=== PATIENT | female | born 2000 | race African-American/Black ===

== ENCOUNTER 2025-01-14 00:12 | Emergency (ER) | payer OTHER, SELFPAY ==
[2025-01-14] VITALS (7 sets, daily range): BP systolic 122–139; BP diastolic 76–93; PULSE 72–97; RESP 18–34; TEMP 36.7; O2SAT 99–100
--- NOTE | ~2025-01-14 | XR_ITS ---
Clinical Indication: Shortness of breath PA and lateral views of the chest: Comparison: None Findings: The lungs are clear, without evidence of focal consolidation or pleural effusion. Cardiome diastinal silhouette is within normal limits. Bones and soft tissues are unremarkable. Impression: Normal chest. Reviewed, dictated and finalized at [facility]. Impression: Normal chest.
--- NOTE | 2025-01-14 00:23 | ECG_ITS ---
Test Date: 2025-01-14 00:12:25 Measurements Intervals [place] Rate: 90 P: 79 HI: 151 QRS: 57 QRSD: 83 T: -3 QT: 380 QTc: 466 Interpretive Statements SINUS RHYTHM NONSPECIFIC T-WAVE ABNORMALITY INTERPRETATION BASED ON A DEFAULT AGE OF 40 YEARS No previous ECG available for comparison Electronically Signed On 01-14-2025 15:58:18 CDT by Berto Del Valle M.D.
[2025-01-14 00:29] LABS: BEDSIDEPREGUCG Negative (Negative)
[2025-01-14 00:40] LABS: Basophils Percent Auto 0.4 % (0.2-1.2); Eosinophils Percent Auto 0.1 % (0-4.4); Hematocrit 33.7 % (37.0-47.0); Hemoglobin 11.4 g/dL (12.0-15.0); Immature Granulocyte Absolute 0.01 K/mm3 (0.00-0.031); Immature Granulocyte Percent A 0.1 % (0-0.5); Lymphocytes Absolute Auto 3.25 K/mm3 (0.9-3.2); Lymphocytes Percent Auto 45.1 % (18.3-44.2); Mean Corpuscular HGB Conc 33.8 g/dl (32-36); Mean Corpuscular Hemoglobin 28.4 pg (26-34); Mean Corpuscular Volume 83.8 fl (80-100); Mean Platelet Volume 10.5 fl (7.4-10.4); Monocytes Absolute Auto 0.9 K/mm3 (0.1-0.6); Monocytes Percent Auto 11.9 % (2.6-8.5); Neutrophils Percent Auto 42.4 % (45.5-73.1); Platelet Count Result 241 k/mm3 (150-375); Red Blood Count 4.02 M/mm3 (4.2-5.4); Red Cell Distribution Width 15.8 % (11.5-14.5); White Blood Count 7.2 K/mm3 (4.5-10.0)
[2025-01-14 00:48] LABS: Alanine Aminotransferase 33 U/L (6-35); Albumin Level 4.9 g/dL (3.5-5.1); Alkaline Phosphatase 79 U/L (38-126); Anion Gap 14 mmol/L (4-12); Aspartate Amino Transferase 47 U/L (14-36); Bilirubin,Total 0.2 mg/dL (0.2-1.3); Blood Urea Nitrogen 8 mg/dL (7-17); Calcium 9.9 mg/dL (8.4-10.2); Carbon Dioxide 19 mmol/L (22-30); Chloride 105 mmol/L (98-107); Estimated CRCL calculation 85 ml/min; Estimated Glomerular Filt Rate > 60; Glucose 107 mg/dL (65-110); Potassium 3.1 mmol/L (3.4-5.0); Sodium 138 mmol/L (137-145)
--- OUTSIDE RECORDS SUMMARY | 2025-01-14 01:25 | XMS_ITS | Referral Summary ---
Author Organization [facility] Address [address] [place] [address] Care Team Providers Care Belt And Link Assembly Supervisor Name Role Phone Unknown, Notinfile Primary Care Provider Unavail able Encounters Date Type Department Care Team Description 12/04/2024 4:18 AM CDT - 12/04/2024 7:16 AM CDT Emergency [address] [address] Nasim Payan MD Chest pain, unspecified type (Primary Dx); Anemia, unspecified type Discharge Disposition: Discharge to home or self care 11/19/2024 SHOP/CHAP Initial Outreach [facility] OP CASE MANAGEMENT [address] [place] [address] Norma Cardona, SCHOOL CLERK 11/18/2024 SHOP/CHAP Initial Outreach [facility] OP CASE MANAGEMENT [address] [place] [address] Norma Cardona LCSW 11/17/2024 SHOP/CHAP Initial Outreach [facility] OP CASE MANAGEMENT [address] [place] [address] Norma Cardona LCSW 11/17/2024 SHOP/CHAP Initial Eligibility Review [facility] OP CASE MANAGEMENT [address] [place] [address] Norma Cardona LCSW 11/11/2024 10:01 PM CDT - 11/16/2024 5:30 PM CDT Hospital Encounter [facility] [place] [address] Ellie Chung MD Renz, MD Dmitry Gomez, MD Sheridan Valentin, MD Maria D Vu Mirjana, MD Acute encephalopathy (Primary Dx); Dental abscess; Alcohol withdrawal syndrome with complication (HCC); Syncope, unspecified syncope type Discharge Disposition: Discharge to home or self care from Last 3 Months Allergies No known active allergies Medications albuterol HFA (PROVENTIL HFA,VENTOLIN HFA,PROAIR HFA) 90 mcg/actuation inhaler Inhale 2 puffs every 4 (four) hours as needed for wheezing 1 each 11/28/2022 Active multivitamin with folic acid 400 mcg tablet Take 1 tablet by mouth daily 30 tablet 11/17/2024 11/18/19 26 Active Active Problems Problem Noted Date Diagnosed Date Screening examination for STI 11/14/2024 Assessment & Plan (11/15/2024 1:07 PM CDT): Patient reported ongoing dysuria in spite on negative urine cx and now endorses recent sexual encounter and yellow and green vaginal drainage. - HIV, RPR non-reactive, urine G/C, trich negative - vaginal swab with altered rainer, vaginal yeast - s/p fluconazole 150mg x1. - dysuria improving Pain due to dental caries 11/13/2024 Assessment & Plan (11/14/2024 3:22 PM CDT): Panorex obtained with multiple caries of maxillary and mandibular molars, no periapical lucencies. Discussed with patient and she is interested in extractions - OMFS c/s called, evaluated after patient had already eaten, so extraction deferred until next week - patient with difficulty obtaining dental care outpatient. Due to caries and dental pain, OMFS agreeable to perform extractions inpatient Acute encephalopathy 11/12/2024 Assessment & Plan (11/15/2024 7:47 AM CDT): Likely due to alcohol withdrawal and medications. While in the ER, she developed episodes of unresponsiveness and was persistently tachycardic, having tremors, therefore she was given 5 of diazepam which improved patient's mentation and tremors, tachycardia. - Start FA, MV and thiamine - Creative Project Manager on cessation - SW provided resources for alcohol abuse - AWAS discontinued 11/15 Tonsillitis 11/12/2024 Assessment & Plan (11/16/2024 7:17 AM CDT): H/o recurrent dental issues, history of Hector's angina presented to the hospital for facial swelling and dental pain. CT head and neck and facial bone with contrast showed asymmetric edema and enlargement of the left pharyngeal tonsils with reactive lymph nodes throughout the left neck likely due to tonsillitis, no fluid collection, it showed soft tissue stranding throughout the left cheek representing edema versus sialitis. - cont Unasyn (11/12 - current) - s/p SoluMedrol 40 mg x1 - Decadron Q8 x24 hours followed by medrol taper (discussed with ENT, declined c/s iso no fluid collection, no stridor) - monitor airway - Mech soft diet, tolerating water/ pills, drooling resolved - throat culture no growth - swelling continues to improve UTI (urinary tract infection) 11/12/2024 Assessment & Plan (11/15/2024 1:07 PM CDT): Patient reported dysuria and suprapubic region TTP. - UA with 11-20 WBC, trace bacteria - Urine cx negative (obtained after 2 doses Unasyn) - dysuria improving Near syncope 02/01/2023 Alcohol abuse 02/01/2023 Lactic acidosis 02/01/2023 Hypophosphatemia 02/01/2023 Acute cystitis with hematuria 02/01/2023 Severe protein-calorie malnutrition 02/01/2023 Depression 02/01/2023 Tobacco abuse 02/01/2023 Social History Tobacco Use Types Packs/Day Years Used Date Smoking Tobacco: Every Day Cigarettes Cigars Tobacco Cessation:Ready to Q uit: Not Asked; Counseling Given: Not Answered Alcohol Use Standard Drinks/Week Comments Yes 0 (1 standard drink = 0.6 oz pur e alcohol) social Social Connection and Isolat ion Panel [NHANES] Answer Date Recorded In a typical week, how many times do you talk on the phone with family, friends, or neighbors? More than three times a week 02/04/2023 How often do you get togethe r with friends or relatives? More than three times a week 02/04/2023 How often do you attend chur ch or jehovah's witness services? Never 02/04/2023 Do you belong to any clubs o r organizations such as orthodoxy groups, unions, fraternal or athletic groups, or school groups? No 02/04/2023 How often do you attend meet ings of the clubs or organizations you belong to? Never 02/04/2023 Are you , , di vorced, , never , or living with a partner? Never 02/04/2023 AUDIT-C Answer Date Recorded Q1: How often do you have a drink containing alcohol? 4 or more times a week 02/04/2023 Q2: How many drinks containi ng alcohol do you have on a typical day when you are drinking? 5 or 6 Q3: How often do you have si x or more drinks on one occasion? Weekly 02/04/2023 Overall Financial Resource Strain (CARDIA) Answe r Date Recorded How hard is it for you to pa y for the very basics like food, housing, medical care, and heating? Not hard at all 02/04/2023 Hunger Vital Sign Answer Date Recorded Within the past 12 months, y ou worried that your food would run out before you got the money to buy more. Never true 02/05/20 23 Within the past 12 months, t he food you bought just didn't last and you didn't have money to get more. Never true 02/04/2023 PRAPARE - Transportation Answer Date Re corded In the past 12 months, has l ack of transportation kept you from medical appointments or from getting medications? No 12/2022 In the past 12 months, has l ack of transportation kept you from meetings, work, or from getting things needed for daily living? No 02/04/2023 Housing Stability Vital Sign Answer Yoel e Recorded In the last 12 months, was t here a time when you were not able to pay the mortgage or rent on time? No 02/04/2023 In the last 12 months, how many places have you lived? 1 02/04/2023 In the last 12 months, was t here a time when you did not have a steady place to sleep or slept in a custodial (including now)? No 02/04/2023 Personal Safety Answer Date Recorded Have you ever been in or are you currently in a harmful physical or emotional relationship or is someone making you feel afraid or unsafe? 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 Gender Identity Not on file Sexual Orientation Not on file Last Filed Vital Signs Vital Sign Reading Time Taken Comments Blood Pressure 108/74 12/04/2024 7:00 AM CDT Pulse 79 12/04/2024 7:00 AM CDT Temperature 36.8 C (98.3 F) 12/03/2024 11:58 PM CDT Respiratory Rate 21 12/04/2024 7:00 AM CDT Oxygen Saturation 100% 12/04/2024 7:00 AM CDT Inhaled Oxygen Concentration - - Weight 49 kg (108 lb 1.6 oz) 11/12/2024 5:50 PM CDT Height 167.6 cm (5' 6 ) 11/12/2024 5:50 PM CDT Body Mass Index 17.45 11/12/2024 5:50 PM CDT Plan of Treatment Not on file Procedures Procedure Name Priority Date/Time Associated Diagnosis Comments PHOSPHORUS Timed 12/04/2024 5:47 AM CDT MAGNESIUM Timed 12/04/2024 5:47 AM CDT TROPONIN T HIGH-SENSITIVITY 6-HOUR Timed 12/04/2024 5:47 AM CDT TROPONIN T HIGH-SENSITIVITY 4-HR Timed 12/04/2024 4:32 AM CDT TROPONIN T HIGH-SENSITIVITY 2-HOUR Timed 12/04/2024 2:11 AM CDT XR CHEST 1 VIEW ED 12/04/2024 12:06 AM CDT EGFR STAT 12/04/2024 12:02 AM CDT DIFFERENTIAL AUTO STAT 12/04/2024 12: 02 AM CDT TROPONIN T HIGH-SENSITIVITY SERIES (BASELINE, 2HR, 4HR, 6HR) STAT 12/04/2024 12:02 AM CDT COMPREHENSIVE METABOLIC PANEL STAT 12/04/2024 12:02 AM CDT CBC WITH AUTO DIFFERENTIAL STAT 12/04/2024 12:02 AM CDT ECG 12-LEAD STAT 12/03/2024 11:52 PM CDT EGFR Routine 11/15/2024 9:46 PM CDT DIFFERENTIAL AUTO Routine 11/15/2024 9:4 6 PM CDT BASIC METABOLIC PANEL Routine 11/15/2024 9:46 PM CDT CBC WITH AUTO DIFFERENTIAL Routine 11/15/2024 9:46 PM CDT EGFR Routine 11/14/2024 8:48 PM CDT CBC WITHOUT DIFFERENTIAL Routine 11/14/2024 8:48 PM CDT BASIC METABOLIC PANEL Routine 11/14/2024 8:48 PM CDT TRICHOMONAS VAGINALIS PCR Routine 11/14/2024 12:20 PM CDT N. GONORRHOEAE/C. TRACHOMATIS AMPLIFICATION Routine 11/14/2024 12:20 PM CDT HIV 1/2 ANTIBODY PLUS P24 ANTIGEN Timed 11/14/2024 12:10 PM CDT RPR Timed 11/14/2024 12:10 PM CDT BACTERIAL VAGINOSIS STAIN Routine 11/14/2024 12:10 PM CDT EGFR Routine 11/13/2024 9:14 PM CDT CBC WITHOUT DIFFERENTIAL Routine 11/13/2024 9:14 PM CDT COMPREHENSIVE METABOLIC PANEL Routine 11/13/2024 9:14 PM CDT THROAT CULTURE Routine 11/13/2024 3:00 PM CDT EGFR Routine 11/13/2024 4:47 AM CDT CBC WITHOUT DIFFERENTIAL Routine 11/13/2024 4:47 AM CDT BASIC METABOLIC PANEL Routine 11/13/2024 4:47 AM CDT POCT HCG, URINE Routine 11/12/2024 10:52 AM CDT URINALYSIS, MICROSCOPIC ONLY STAT 11/12/2024 10:43 AM CDT URINE CULTURE STAT 11/12/2024 10:43 AM CDT URINALYSIS AND REFLEX TO MICROSCOPIC AND CULTURE STAT 11/12/2024 10:43 AM CDT XR ORTHOPANTOGRAM/PANOR EX IP Routine 11/12/2024 10:33 AM CDT ED CRITICAL CARE Routine 11/11/2024 11:[address] RECON FACIAL BONE W CONTRAST ED 11/11/2024 11:[address] SOFT TISSUE NECK W CONTRAST ED Urgent/IP Urgent 11/11/2024 11:[address] HEAD WO CONTRAST ED Urgent/IP Urgent 11/11/2024 11:24 PM CDT ECG 12-LEAD Routine 11/11/2024 10:59 PM CDT B CHECK SAMPLE STAT 11/11/2024 10:57 PM CDT POCT CREATININE - DEVICE Routine 11/11/2024 10:46 PM CDT TYPE AND SCREEN STAT 11/11/2024 10:30 PM CDT APTT STAT 11/11/2024 10:30 PM CDT PROTIME-INR STAT 11/11/2024 10:30 PM CDT EGFR STAT 11/11/2024 10:22 PM CDT DIFFERENTIAL AUTO STAT 11/11/2024 10: 22 PM CDT COMPREHENSIVE METABOLIC PANEL STAT 11/11/2024 10:22 PM CDT CBC WITH AUTO DIFFERENTIAL STAT 11/11/2024 10:22 PM CDT ETHANOL STAT 11/11/2024 10:22 PM CDT from Last 3 Months Results * Troponin T high-sensitivity 6-hour (12/04/2024 5:47 AM CDT) Trop T hs <6 <=14 ng/L Comment: Interpretive Data For further hscTnT resources including the diagnostic algorithm and an aid in interpretation, copy and paste this link: https://nrl.testcatalog.org/show/hsTrop Current Interpretive Data last revised 2020. Trop T hs delta 0 ng/L MARY MAYA Trop T hs interp Insignificant MARY MAYA Blood 12/04/2024 5:47 AM CDT 12/04/2024 6:04 AM CDT us Nasim Payan MD LAB BLOOD ORDERABLES Final Result CERNER [address] [address] * Phosphorus (12/04/2024 5:47 AM CDT) Pathologist [facility] Phosphorus, pl 4.3 2.3 - 4.5 mg/dL Blood 12/04/2024 5:47 AM CDT 12/04/2024 6:04 AM CDT Nasim Payan MD LAB BLOOD ORDERABLES Final Result Performing Organization Address [facility]/ZIP Co de Phone Number [address] [address] * Magnesium (12/04/2024 5:47 AM CDT) [facility] Magnesium 1.6 1.4 - 2.5 mg/dL Blood 12/04/2024 5:47 AM CDT 12/04/2024 6:04 AM CDT Nasim Payan MD LAB BLOOD ORDERABLES Final Result Performing Organization Address [facility] Co de Phone Number [address] [address] * Troponin T high-sensitivity 4-hour (12/04/2024 4:32 AM CDT) [facility] Trop T hs <6 <=14 ng/L Comment: Interpretive Data For further hscTnT resources including the diagnostic algorithm and an aid in interpretation, copy and paste this link: https://nrl.testcatalog.org/show/hsTrop Current Interpretive Data last revised 2020. Trop T hs delta 0 ng/L MARY MAYA Trop T hs interp Insignificant MARY Blood 12/04/2024 4:32 AM CDT 12/04/2024 4:36 AM CDT Nasim Payan MD LAB BLOOD ORDERABLES Final Result Performing Organization Address City/[facility]/ZIP Co de Phone Number [address] [place] [address] * Troponin T high-sensitivity 2-hour (12/04/2024 2:11 AM CDT) Trop T hs <6 <=14 ng/L Comment: Interpretive Data For further hscTnT resources including the diagnostic algorithm and an aid in interpretation, copy and paste this link: https://nrl.testcatalog.org/show/hsTrop Current Interpretive Data last revised 2020. Trop T hs delta 0 ng/L MARY Trop T hs interp Insignificant MARY Blood 12/04/2024 2:11 AM CDT 12/04/2024 2:14 AM CDT Nasim Payan MD LAB BLOOD ORDERABLES Final Result [address] [address] * XR Chest 1 Vw Portable (if patient condition/safety warrant portable) (12/04/2024 12:06 AM CDT) Anatomical Region Laterality Modality Body, Chest N/A Computed Radiogr aphy 12/04/2024 12:5 4 AM CDT Narrative 12/04/2024 12:55 AM CDT EXAM DESCRIPTION: XR CHEST 1 VIEW REASON FOR STUDY: chest pain Pt bibems for complaint of intermittent period of dizziness, lightheaded sensation, and tingling sensation to extremities. 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 Pt states intermittent chest pain to center of chest rated 8 out of 10. Notes similar instance occurring approx 1 year ago with noted cause of Potassium and Sodium levels being out of normal range. Endorses intermitted SoB with pain. TECHNIQUE: Single radiographic view of the chest. COMPARISON: Chest x-ray of February 01, 2023. FINDINGS: LUNGS/PLEURA: No focal consolidation or pneumothorax. No pleural effusion. HEART/MEDIASTINUM: Cardiac silhouette is normal. Remaining mediastinal silhouettes are unremarkable. HARDWARE/LINES/TUBES: None. BONES: No acute findings. IMPRESSION: No acute cardiopulmonary abnormality. THIS IS AN ELECTRONICALLY VERIFIED FINAL REPORT 12/04/2024 12:55 AM - Electronically signed by Nidhi Martinez M.D. SN T: Report ID: [id number] Reading Location: [id number] Procedure Note Nidhi Martinez MD - 12/04/2024 EXAM DESCRIPTION: XR CHEST 1 VIEW REASON FOR STUDY: chest pain Pt bibems for complaint of intermittent period of dizziness, lightheaded sensation, and tingling sensation to extremities. 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 Pt states intermittent chest pain to center of chest rated 8 out of 10. Notessimilar instance occurring approx 1 year ago with noted cause of Potassium andSodium levels being out of normal range. Endorses intermitted SoB with pain. TECHNIQUE: Single radiographic view of the chest. COMPARISON: Chest x-ray of February 01, 2023. FINDINGS: LUNGS/PLEURA: No focal consolidation or pneumothorax. Nopleural effusion. HEART/MEDIASTINUM: Cardiac silhouette is normal. Remaining mediastinal silhouettes are unremarkable. HARDWARE/LINES/TUBES: None. BONES: No acute findings. IMPRESSION: No acute cardiopulmonary abnormality. THIS IS AN ELECTRONICALLY VERIFIED FINAL REPORT 12/04/2024 12:55 AM - Electronically signed by Nidhi Martinez M.D. SN T: Report ID: [id number] Reading Location: [id number] us Nasim Payan MD IMG XR PROCEDURES Final Re sult * Troponin T high-sensitivity series (baseline, 2hr, 4hr, 6hr) (12/04/2024 12:02 AM CDT) Trop T hs <6 <=14 ng/L Comment: Interpretive Data For further hscTnT resources including the diagnostic algorithm and an aid in interpretation, copy and paste this link: https://nrl.testcatalog.org/show/hsTrop Current Interpretive Data last revised 2020. Blood 12/04/2024 12:0 2 AM CDT 12/04/2024 12:06 AM CDT Nasim Payan MD LAB BLOOD ORDERABLES Final Result Performing Organization Address [facility] Co de Phone Number MARY [address] [address] * eGFR (12/04/2024 12:02 AM CDT) Pathologist [facility] eGFR >90 >=60 mL/min/1. 73 m2 Comment: Interpretive Data Reference Interval Normal >/= 90 mL/min/1.73m2 Mildly decreased* 60 - 89 mL/min/1.73m2 Mildly to moderately decreased 45 - 59 mL/min/1.73m2 Moderately to severely decreased 30 - 44 mL/min/1.73m2 Severely decreased 15 - 29 mL/min/1.73m2 Kidney Failure < 15 mL/min/1.73m2 *Relative to young adult level Estimated glomerular filtration rate is determined by the 2020 CKD-EPI equation recommended by the National Kidney Foundation (A Unifying Approach to GFR Estimation: Recommendations of the NKF-ASK Task Force on Reassessing the Inclusion of Race in Diagnosing Kidney Disease, JASN 2020). The CKD-EPI equation should not be used for patients with unstable renal function and has not been validated in children and those over 70. Current interpretive data was last reviewed 2021. Blood 12/04/2024 12:0 2 AM CDT 12/04/2024 12:06 AM CDT Nasim Payan MD LAB BLOOD ORDERABLES Final Result Performing Organization Address City/[facility]/ZIP Co de Phone Number MARY [address] [place] [address] * Differential, auto (12/04/2024 12:02 AM CDT) [facility] Neutrophil abs 3.46 1.50 - 6.50 K/cumm Imm gran abs 0.01 0.00 - 0.10 K/cumm [facility] Lymphocyte abs 2.36 0.80 - 3.30 K/cumm [facility] Monocyte abs 0.64 0.20 - 0.80 K/cumm [facility] Eosinophil abs 0.02 0.00 - 0.50 K/cumm [facility] Basophil abs 0.02 0.00 - 0.10 K/cumm [facility] Neutrophil pct 53.1 % [facility] Comment: Interpretive Data Percent cell count reference ranges are not reported, since discordance with absolute values may lead to misinterpretation of CBC data. Current Interpretive Data was last revised on 2017. Imm gran pct 0.2 % [facility] Comment: Interpretive Data Percent cell count reference ranges are not reported, since discordance with absolute values may lead to misinterpretation of CBC data. Current Interpretive Data was last revised on 2017. Lymphocyte pct 36.3 % [facility] Comment: Interpretive Data Percent cell count reference ranges are not reported, since discordance with absolute values may lead to misinterpretation of CBC data. Current Interpretive Data was last revised on 2017. Monocyte pct 9.8 % [facility] Comment: Interpretive Data Percent cell count reference ranges are not reported, since discordance with absolute values may lead to misinterpretation of CBC data. Current Interpretive Data was last revised on 2017. Eosinophil pct 0.3 % [facility] Comment: Interpretive Data Percent cell count reference ranges are not reported, since discordance with absolute values may lead to misinterpretation of CBC data. Current Interpretive Data was last revised on 2017. Basophil pct 0.3 % [facility] Comment: Interpretive Data Percent cell count reference ranges are not reported, since discordance with absolute values may lead to misinterpretation of CBC data. Current Interpretive Data was last revised on 2017. Blood 12/04/2024 12:0 2 AM CDT 12/04/2024 12:06 AM CDT us Nasim Payan MD LAB BLOOD ORDERABLES Final Result MARY [address] [facility] [place] [address] * (ABNORMAL) CBC with auto differential (12/04/2024 12:02 AM CDT) [facility] WBC 6.51 3.80 - 9.90 K/cumm Hgb 10.7(L) 11.9 - 15.5 g/dL [facility] Hct 30.4(L) 35.6 - 45.5 % [facility] Plt 182 150 - 400 K/cumm [facility] MPV 10.2 9.1 - 12.3 fL [facility] RBC 3.66(L) 3.90 - 5.20 M/cumm [facility] MCV 83.1 81.3 - 96.4 fL [facility] MCH 29.2 27.1 - 33.3 pg [facility] MCHC 35.2 32.3 - 35.7 g/dL [facility] RDW CV 14.3 11.1 - 14.9 % [facility] RDW SD 42.6 35.7 - 48.1 fL [facility] NRBC abs 0.00 0.00 - 0.01 K/cumm [facility] Blood Venous blood specimen / Unknown 12/04/2024 12:02 AM CDT 12/04/2024 12:06 AM CDT us Nasim Payan MD LAB BLOOD ORDERABLES Final Result [facility] [address] [facility] Department of Laboratories [place], [place] [id number] * Comprehensive metabolic panel (12/04/2024 12:02 AM CDT) [facility] Sodium 138 135 - 145 mmol/L Potassium, pl 3.4 3.3 - 4.9 mmol/L [facility] Chloride 100 97 - 110 mmol/L [facility] CO2 24 22 - 32 mmol/L [facility] Anion gap 14 2 - 15 mmol/L [facility] BUN 8 6 - 25 mg/dL [facility] Creatinine 0.67 0.60 - 1.10 mg/dL [facility] Glucose 105 70 - 199 mg/dL [facility] Comment: Interpretive Data Fasting glucose >/= 126 mg/dl is diagnostic for diabetes. Fasting is defined as no caloric intake for at least 8 hours. Fasting glucose between 100 mg/dl to 125 mg/dl is diagnostic of prediabetes. In a patient with classic symptoms of hyperglycemia or hyperglycemic crisis, a random glucose >/= 200 mg/dl is diagnostic for diabetes. In the absence of unequivocal hyperglycemia, results should be confirmed by repeat testing. The classification and Diagnosis of Diabetes Diabetes Care 2021; 46: S19-S40. Current interpretive data was last revised 2022. Calcium 10.1 8.5 - 10.3 mg/dL [facility] Bilirubin, total <0.2 0.1 - 1.2 mg/dL [facility] Protein, pl 7.8 6.5 - 8.5 g/dL [facility] Albumin 4.6 3.5 - 5.0 g/dL [facility] Alk phos 50 40 - 130 Units/L [facility] ALT 25 7 - 45 Units/L [facility] AST 42 10 - 45 Units/L [facility] Blood 12/04/2024 12:0 2 AM CDT 12/04/2024 12:06 AM CDT Nasim Payan MD LAB BLOOD ORDERABLES Final Result [facility] [address] [facility] [place] [address] * ECG 12 lead (12/03/2024 11:52 PM CDT) Ventricular Rate EKG/Min 91 BPM [facility] Atrial Rate 91 BPM [facility] MS-Interval (MSEC) 136 ms [facility] QRS-Interval (MSEC) 80 ms [facility] QT-Interval (MSEC) 390 ms [facility] QTc 479 ms [facility] P [place] [address] [facility] R [place] [address] [facility] T [place] [address] [facility] Diagnosis Normal sinus rhythm Normal ECG When compared with ECG of 05-NOV-2023 14:56, No significant change Confirmed by MARIA FERNANDA GUERRIER M.D. ([id number]) on 12/07/2024 9:17:03 AM [facility] 12/03/2024 11:5 2 PM CDT 12/07/2024 9:17 AM CDT us Nasim Payan MD ECG ORDERABLES Final Resu lt [facility] * eGFR (11/15/2024 9:46 PM CDT) eGFR >90 >=60 mL/min/1. 73 m2 Comment: Interpretive Data Reference Interval Normal >/= 90 mL/min/1.73m2 Mildly decreased* 60 - 89 mL/min/1.73m2 Mildly to moderately decreased 45 - 59 mL/min/1.73m2 Moderately to severely decreased 30 - 44 mL/min/1.73m2 Severely decreased 15 - 29 mL/min/1.73m2 Kidney Failure < 15 mL/min/1.73m2 *Relative to young adult level Estimated glomerular filtration rate is determined by the 2020 CKD-EPI equatio [id number]|2025-01-14 01:25:00|2025-01-14 01:25:00|XMS_ITS|RANJANA KNIGHT|External Medical Summaries|[id number]|" Clinical Summary Created on: January 14, 2025 Kiley Rowe Leroy : 2000 Sex: Female Author Organization [facility] Address [facility] [place] [address] Care Team Providers Care Belt And Link Assembly Supervisor Name Role Phone Unknown, Notinfile Primary Care Provider Unavail able Allergies No known active allergies Medications albuterol HFA (PROVENTIL HFA,VENTOLIN HFA,PROAIR HFA) 90 mcg/actuation inhaler Inhale 2 puffs every 4 (four) hours as needed for wheezing 1 each 11/28/2022 Active multivitamin with folic acid 400 mcg tablet Take 1 tablet by mouth daily 30 tablet 11/17/2024 11/18/19 26 Active Active Problems Problem Noted Date Diagnosed Date Screening examination for STI 11/14/2024 Assessment & Plan (11/15/2024 1:07 PM CDT): Patient reported ongoing dysuria in spite on negative urine cx and now endorses recent sexual encounter and yellow and green vaginal drainage. - HIV, RPR non-reactive, urine G/C, trich negative - vaginal swab with altered rainer, vaginal yeast - s/p fluconazole 150mg x1. - dysuria improving Pain due to dental caries 11/13/2024 Assessment & Plan (11/14/2024 3:22 PM CDT): Panorex obtained with multiple caries of maxillary and mandibular molars, no periapical lucencies. Discussed with patient and she is interested in extractions - OMFS c/s called, evaluated after patient had already eaten, so extraction deferred until next week - patient with difficulty obtaining dental care outpatient. Due to caries and dental pain, OMFS agreeable to perform extractions inpatient Acute encephalopathy 11/12/2024 Assessment & Plan (11/15/2024 7:47 AM CDT): Likely due to alcohol withdrawal and medications. While in the ER, she developed episodes of unresponsiveness and was persistently tachycardic, having tremors, therefore she was given 5 of diazepam which improved patient's mentation and tremors, tachycardia. - Start FA, MV and thiamine - Creative Project Manager on cessation - SW provided resources for alcohol abuse - AWAS discontinued 11/15 Tonsillitis 11/12/2024 Assessment & Plan (11/16/2024 7:17 AM CDT): H/o recurrent dental issues, history of Hector's angina presented to the hospital for facial swelling and dental pain. CT head and neck and facial bone with contrast showed asymmetric edema and enlargement of the left pharyngeal tonsils with reactive lymph nodes throughout the left neck likely due to tonsillitis, no fluid collection, it showed soft tissue stranding throughout the left cheek representing edema versus sialitis. - cont Unasyn (11/12 - current) - s/p SoluMedrol 40 mg x1 - Decadron Q8 x24 hours followed by medrol taper (discussed with ENT, declined c/s iso no fluid collection, no stridor) - monitor airway - Mech soft diet, tolerating water/ pills, drooling resolved - throat culture no growth - swelling continues to improve UTI (urinary tract infection) 11/12/2024 Assessment & Plan (11/15/2024 1:07 PM CDT): Patient reported dysuria and suprapubic region TTP. - UA with 11-20 WBC, trace bacteria - Urine cx negative (obtained after 2 doses Unasyn) - dysuria improving Near syncope 02/01/2023 Alcohol abuse 02/01/2023 Lactic acidosis 02/01/2023 Hypophosphatemia 02/01/2023 Acute cystitis with hematuria 02/01/2023 Severe protein-calorie malnutrition 02/01/2023 Depression 02/01/2023 Tobacco abuse 02/01/2023 Encounters Date Type Department Care Team Description 12/04/2024 4:18 AM CDT - 12/04/2024 7:16 AM CDT Emergency [address] [address] Nasim Payan MD Chest pain, unspecified type (Primary Dx); Anemia, unspecified type Discharge Disposition: Discharge to home or self care 11/19/2024 SHOP/CHAP Initial Outreach [facility] [address] [place] [address] Norma Cardona LCSW 11/18/2024 SHOP/CHAP Initial Outreach [facility] [address] [place] [address] Norma Cardona LCSW 11/17/2024 SHOP/CHAP Initial Outreach [facility] [address] [place] [address] Norma Cardona LCSW 11/17/2024 SHOP/CHAP Initial Eligibility Review [facility] [address] [place] [address] Norma Cardona, SCHOOL CLERK 11/11/2024 10:01 PM CDT - 11/16/2024 5:30 PM CDT Hospital Encounter [facility] [address] [place] [address] Ellie Chung MD Renz, MD Dmitry Gomez, MD Sheridan Valentin, MD Maria D Vu Mirjana, MD Acute encephalopathy (Primary Dx); Dental abscess; Alcohol withdrawal syndrome with complication (HCC); Syncope, unspecified syncope type Discharge Disposition: Discharge to home or self care from Last 3 Months Surgical History Surgery Date Site/Laterality Comments EYE SURGERY Left Medical History Medical History Date Comments Childhood asthma Social History Tobacco Use Types Packs/Day Years Used Date Smoking Tobacco: Every Day Cigarettes Cigars Tobacco Cessation:Ready to Q uit: Not Asked; Counseling Given: Not Answered Alcohol Use Standard Drinks/Week Comments Yes 0 (1 standard drink = 0.6 oz pur e alcohol) social Social Connection and Isolat ion Panel [NHANES] Answer Date Recorded In a typical week, how many times do you talk on the phone with family, friends, or neighbors? More than three times a week 02/04/2023 How often do you get togethe r with friends or relatives? More than three times a week 02/04/2023 How often do you attend chur or jehovah's witness services? Never 02/04/2023 Do you belong to any clubs o r organizations such as orthodoxy groups, unions, fraternal or athletic groups, or school groups? No 02/04/2023 How often do you attend meet ings of the clubs or organizations you belong to? Never 02/04/2023 Are you , , di vorced, , never , or living with a partner? Never 02/04/2023 AUDIT-C Answer Date Recorded Q1: How often do you have a drink containing alcohol? 4 or more times a week 02/04/2023 Q2: How many drinks containi ng alcohol do you have on a typical day when you are drinking? 5 or 6 Q3: How often do you have si x or more drinks on one occasion? Weekly 02/04/2023 Overall Financial Resource Strain (CARDIA) Answe r Date Recorded How hard is it for you to pa y for the very basics like food, housing, medical care, and heating? Not hard at all 02/04/2023 Hunger Vital Sign Answer Date Recorded Within the past 12 months, y ou worried that your food would run out before you got the money to buy more. Never true 02/05/20 23 Within the past 12 months, t he food you bought just didn't last and you didn't have money to get more. Never true 02/04/2023 PRAPARE - Transportation Answer Date Re corded In the past 12 months, has l ack of transportation kept you from medical appointments or from getting medications? No 12/2022 In the past 12 months, has l ack of transportation kept you from meetings, work, or from getting things needed for daily living? No 02/04/2023 Housing Stability Vital Sign Answer Yoel e Recorded In the last 12 months, was t here a time when you were not able to pay the mortgage or rent on time? No 02/04/2023 In the last 12 months, how many places have you lived? 1 02/04/2023 In the last 12 months, was t here a time when you did not have a steady place to sleep or slept in a custodial (including now)? No 02/04/2023 Personal Safety Answer Date Recorded Have you ever been in or are you currently in a harmful physical or emotional relationship or is someone making you feel afraid or unsafe? 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 Gender Identity Not on file Sexual Orientation Not on file Obstetrics History Last Filed Vital Signs Vital Sign Reading Time Taken Comments Blood Pressure 108/74 12/04/2024 7:00 AM CDT Pulse 79 12/04/2024 7:00 AM CDT Temperature 36.8 C (98.3 F) 12/03/2024 11:58 PM CDT Respiratory Rate 21 12/04/2024 7:00 AM CDT Oxygen Saturation 100% 12/04/2024 7:00 AM CDT Inhaled Oxygen Concentration - - Weight 49 kg (108 lb 1.6 oz) 11/12/2024 5:50 PM CDT Height 167.6 cm (5' 6 ) 11/12/2024 5:50 PM CDT Body Mass Index 17.45 11/12/2024 5:50 PM CDT Plan of Treatment Health Maintenance Due Date Last Done Comments Cervical Cancer Screening 1999 Depression Screening 1999 Hepatitis C Screening 1999 Regular Well Visit/Exam 18-64 2017 Pneumococcal vaccine <65 (1 of 2 - PCV) 2018 Covid-19 Vaccine (3 - 2023-2 5 season) 2024 11/09/2021, 08/07/2021 Influenza Vaccine (Season Ended) 2025 06/22/2022, 11/26/2018, 07/01/2012, Additional history exists DTaP/Tdap/Td Vaccine (7 - Td or Tdap) 09/24/2032 09/24/2022, 04/19/2011, 05/01/2005, Additional history exists Hepatitis B Screening Completed 07/17/2002 , 04/22/2000, 1999 Varicella Vaccines Completed 12/27/2009, 07/17/2002 HPV Vaccines Completed 02/17/2014, 02/2012, 07/17/2011 Procedures Procedure Name Priority Date/Time Associated Diagnosis Comments PHOSPHORUS Timed 12/04/2024 5:47 AM CDT MAGNESIUM Timed 12/04/2024 5:47 AM CDT TROPONIN T HIGH-SENSITIVITY 6-HOUR Timed 12/04/2024 5:47 AM CDT TROPONIN T HIGH-SENSITIVITY 4-HR Timed 12/04/2024 4:32 AM CDT TROPONIN T HIGH-SENSITIVITY 2-HOUR Timed 12/04/2024 2:11 AM CDT XR CHEST 1 VIEW ED 12/04/2024 12:06 AM CDT EGFR STAT 12/04/2024 12:02 AM CDT DIFFERENTIAL AUTO STAT 12/04/2024 12: 02 AM CDT TROPONIN T HIGH-SENSITIVITY SERIES (BASELINE, 2HR, 4HR, 6HR) STAT 12/04/2024 12:02 AM CDT COMPREHENSIVE METABOLIC PANEL STAT 12/04/2024 12:02 AM CDT CBC WITH AUTO DIFFERENTIAL STAT 12/04/2024 12:02 AM CDT ECG 12-LEAD STAT 12/03/2024 11:52 PM CDT EGFR Routine 11/15/2024 9:46 PM CDT DIFFERENTIAL AUTO Routine 11/15/2024 9:4 6 PM CDT BASIC METABOLIC PANEL Routine 11/15/2024 9:46 PM CDT CBC WITH AUTO DIFFERENTIAL Routine 11/15/2024 9:46 PM CDT EGFR Routine 11/14/2024 8:48 PM CDT CBC WITHOUT DIFFERENTIAL Routine 11/14/2024 8:48 PM CDT BASIC METABOLIC PANEL Routine 11/14/2024 8:48 PM CDT TRICHOMONAS VAGINALIS PCR Routine 11/14/2024 12:20 PM CDT N. GONORRHOEAE/C. TRACHOMATIS AMPLIFICATION Routine 11/14/2024 12:20 PM CDT HIV 1/2 ANTIBODY PLUS P24 ANTIGEN Timed 11/14/2024 12:10 PM CDT RPR Timed 11/14/2024 12:10 PM CDT BACTERIAL VAGINOSIS STAIN Routine 11/14/2024 12:10 PM CDT EGFR Routine 11/13/2024 9:14 PM CDT CBC WITHOUT DIFFERENTIAL Routine 11/13/2024 9:14 PM CDT COMPREHENSIVE METABOLIC PANEL Routine 11/13/2024 9:14 PM CDT THROAT CULTURE Routine 11/13/2024 3:00 PM CDT EGFR Routine 11/13/2024 4:47 AM CDT CBC WITHOUT DIFFERENTIAL Routine 11/13/2024 4:47 AM CDT BASIC METABOLIC PANEL Routine 11/13/2024 4:47 AM CDT POCT HCG, URINE Routine 11/12/2024 10:52 AM CDT URINALYSIS, MICROSCOPIC ONLY STAT 11/12/2024 10:43 AM CDT URINE CULTURE STAT 11/12/2024 10:43 AM CDT URINALYSIS AND REFLEX TO MICROSCOPIC AND CULTURE STAT 11/12/2024 10:43 AM CDT XR ORTHOPANTOGRAM/PANOR EX IP Routine 11/12/2024 10:33 AM CDT ED CRITICAL CARE Routine 11/11/2024 11:[address] RECON FACIAL BONE W CONTRAST ED 11/11/2024 11:[address] SOFT TISSUE NECK W CONTRAST ED Urgent/IP Urgent 11/11/2024 11:[address] HEAD WO CONTRAST ED Urgent/IP Urgent 11/11/2024 11:24 PM CDT ECG 12-LEAD Routine 11/11/2024 10:59 PM CDT B CHECK SAMPLE STAT 11/11/2024 10:57 PM CDT POCT CREATININE - DEVICE Routine 11/11/2024 10:46 PM CDT TYPE AND SCREEN STAT 11/11/2024 10:30 PM CDT APTT STAT 11/11/2024 10:30 PM CDT PROTIME-INR STAT 11/11/2024 10:30 PM CDT EGFR STAT 11/11/2024 10:22 PM CDT DIFFERENTIAL AUTO STAT 11/11/2024 10: 22 PM CDT COMPREHENSIVE METABOLIC PANEL STAT 11/11/2024 10:22 PM CDT CBC WITH AUTO DIFFERENTIAL STAT 11/11/2024 10:22 PM CDT ETHANOL STAT 11/11/2024 10:22 PM CDT from Last 3 Months Results * Troponin T high-sensitivity 6-hour (12/04/2024 5:47 AM CDT) Trop T hs <6 <=14 ng/L Comment: Interpretive Data For further hscTnT resources including the diagnostic algorithm and an aid in interpretation, copy and paste this link: https://nrl.testcatalog.org/show/hsTrop Current Interpretive Data last revised 2020. Trop T hs delta 0 ng/L MARY MAYA Trop T hs interp Insignificant MARY MAYA Blood 12/04/2024 5:47 AM CDT 12/04/2024 6:04 AM CDT us Nasim Payan MD LAB BLOOD ORDERABLES Final Result MARY MAYA [address] [place] [id number] * Phosphorus (12/04/2024 5:47 AM CDT) Phosphorus, pl 4.3 2.3 - 4.5 mg/dL Blood 12/04/2024 5:47 AM CDT 12/04/2024 6:04 AM CDT Nasim Payan MD LAB BLOOD ORDERABLES Final Result Performing Organization Address [facility] Co de Phone Number MARY [address] [address] * Magnesium (12/04/2024 5:47 AM CDT) [facility] Magnesium 1.6 1.4 - 2.5 mg/dL Blood 12/04/2024 5:47 AM CDT 12/04/2024 6:04 AM CDT Nasim Payan MD LAB BLOOD ORDERABLES Final Result Performing Organization Address [facility] de Phone Number [address] [address] * Troponin T high-sensitivity 4-hour (12/04/2024 4:32 AM CDT) Pathologist [facility] Trop T hs <6 <=14 ng/L Comment: Interpretive Data For further hscTnT resources including the diagnostic algorithm and an aid in interpretation, copy and paste this link: https://nrl.testcatalog.org/show/hsTrop Current Interpretive Data last revised 2020. Trop T hs delta 0 ng/L MARY MAYA Trop T hs interp Insignificant MARY Blood 12/04/2024 4:32 AM CDT 12/04/2024 4:36 AM CDT Nasim Payan MD LAB BLOOD ORDERABLES Final Result Performing Organization Address City/[facility]/ZIP Co de Phone Number MARY [address] [place] [address] * Troponin T high-sensitivity 2-hour (12/04/2024 2:11 AM CDT) Trop T hs <6 <=14 ng/L Comment: Interpretive Data For further hscTnT resources including the diagnostic algorithm and an aid in interpretation, copy and paste this link: https://nrl.testcatalog.org/show/hsTrop Current Interpretive Data last revised 2020. Trop T hs delta 0 ng/L MARY Trop T hs interp Insignificant MARY Blood 12/04/2024 2:11 AM CDT 12/04/2024 2:14 AM CDT Nasim Payan MD LAB BLOOD ORDERABLES Final Result MARY [address] [facility] [place] [address] * XR Chest 1 Vw Portable (if patient condition/safety warrant portable) (12/04/2024 12:06 AM CDT) Anatomical Region Laterality Modality Body, Chest N/A Computed Radiogr aphy 12/04/2024 12:5 4 AM CDT Narrative 12/04/2024 12:55 AM CDT EXAM DESCRIPTION: XR CHEST 1 VIEW REASON FOR STUDY: chest pain Pt bibems for complaint of intermittent period of dizziness, lightheaded sensation, and tingling sensation to extremities. 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 Pt states intermittent chest pain to center of chest rated 8 out of 10. Notes similar instance occurring approx 1 year ago with noted cause of Potassium and Sodium levels being out of normal range. Endorses intermitted SoB with pain. TECHNIQUE: Single radiographic view of the chest. COMPARISON: Chest x-ray of February 01, 2023. FINDINGS: LUNGS/PLEURA: No focal consolidation or pneumothorax. No pleural effusion. HEART/MEDIASTINUM: Cardiac silhouette is normal. Remaining mediastinal silhouettes are unremarkable. HARDWARE/LINES/TUBES: None. BONES: No acute findings. IMPRESSION: No acute cardiopulmonary abnormality. THIS IS AN ELECTRONICALLY VERIFIED FINAL REPORT 12/04/2024 12:55 AM - Electronically signed by Nidhi Martinez M.D. SN T: Report ID: [id number] Reading Location: [id number] Procedure Note Nidhi Martinez MD - 12/04/2024 EXAM DESCRIPTION: XR CHEST 1 VIEW REASON FOR STUDY: chest pain Pt bibems for complaint of intermittent period of dizziness, lightheaded sensation, and tingling sensation to extremities. 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 Pt states intermittent chest pain to center of chest rated 8 out of 10. Notessimilar instance occurring approx 1 year ago with noted cause of Potassium andSodium levels being out of normal range. Endorses intermitted SoB with pain. TECHNIQUE: Single radiographic view of the chest. COMPARISON: Chest x-ray of February 01, 2023. FINDINGS: LUNGS/PLEURA: No focal consolidation or pneumothorax. Nopleural effusion. HEART/MEDIASTINUM: Cardiac silhouette is normal. Remaining mediastinal silhouettes are unremarkable. HARDWARE/LINES/TUBES: None. BONES: No acute findings. IMPRESSION: No acute cardiopulmonary abnormality. THIS IS AN ELECTRONICALLY VERIFIED FINAL REPORT 12/04/2024 12:55 AM - Electronically signed by Nidhi Martinez M.D. SN T: Report ID: [id number] Reading Location: [id number] Nasim Payan MD IMG XR PROCEDURES Final Re sult * Troponin T high-sensitivity series (baseline, 2hr, 4hr, 6hr) (12/04/2024 12:02 AM CDT) Trop T hs <6 <=14 ng/L Comment: Interpretive Data For further hscTnT resources including the diagnostic algorithm and an aid in interpretation, copy and paste this link: https://nrl.testcatalog.org/show/hsTrop Current Interpretive Data last revised 2020. Blood 12/04/2024 12:0 2 AM CDT 12/04/2024 12:06 AM CDT Nasim Payan MD LAB BLOOD ORDERABLES Final Result Performing Organization Address [facility] de Phone Number MARY [address] [address] * eGFR (12/04/2024 12:02 AM CDT) Pathologist [facility] eGFR >90 >=60 mL/min/1. 73 m2 Comment: Interpretive Data Reference Interval Normal >/= 90 mL/min/1.73m2 Mildly decreased* 60 - 89 mL/min/1.73m2 Mildly to moderately decreased 45 - 59 mL/min/1.73m2 Moderately to severely decreased 30 - 44 mL/min/1.73m2 Severely decreased 15 - 29 mL/min/1.73m2 Kidney Failure < 15 mL/min/1.73m2 *Relative to young adult level Estimated glomerular filtration rate is determined by the 2020 CKD-EPI equation recommended by the National Kidney Foundation (A Unifying Approach to GFR Estimation: Recommendations of the NKF-ASK Task Force on Reassessing the Inclusion of Race in Diagnosing Kidney Disease, JASN 2020). The CKD-EPI equation should not be used for patients with unstable renal function and has not been validated in children and those over 70. Current interpretive data was last reviewed 2021. Blood 12/04/2024 12:0 2 AM CDT 12/04/2024 12:06 AM CDT Nasim Payan MD LAB BLOOD ORDERABLES Final Result Performing Organization Address [facility] Co de Phone Number MARY [address] [place] [address] * Differential, auto (12/04/2024 12:02 AM CDT) Pathologist [facility] Neutrophil abs 3.46 1.50 - 6.50 K/cumm Imm gran abs 0.01 0.00 - 0.10 K/cumm [facility] Lymphocyte abs 2.36 0.80 - 3.30 K/cumm [facility] Monocyte abs 0.64 0.20 - 0.80 K/cumm [facility] Eosinophil abs 0.02 0.00 - 0.50 K/cumm [facility] Basophil abs 0.02 0.00 - 0.10 K/cumm [facility] Neutrophil pct 53.1 % [facility] Comment: Interpretive Data Percent cell count reference ranges are not reported, since discordance with absolute values may lead to misinterpretation of CBC data. Current Interpretive Data was last revised on 2017. Imm gran pct 0.2 % [facility] Comment: Interpretive Data Percent cell count reference ranges are not reported, since discordance with absolute values may lead to misinterpretation of CBC data. Current Interpretive Data was last revised on 2017. Lymphocyte pct 36.3 % [facility] Comment: Interpretive Data Percent cell count reference ranges are not reported, since discordance with absolute values may lead to misinterpretation of CBC data. Current Interpretive Data was last revised on 2017. Monocyte pct 9.8 % [facility] Comment: Interpretive Data Percent cell count reference ranges are not reported, since discordance with absolute values may lead to misinterpretation of CBC data. Current Interpretive Data was last revised on 2017. Eosinophil pct 0.3 % [facility] Comment: Interpretive Data Percent cell count reference ranges are not reported, since discordance with absolute values may lead to misinterpretation of CBC data. Current Interpretive Data was last revised on 2017. Basophil pct 0.3 % [facility] Comment: Interpretive Data Percent cell count reference ranges are not reported, since discordance with absolute values may lead to misinterpretation of CBC data. Current Interpretive Data was last revised on 2017. Blood 12/04/2024 12:0 2 AM CDT 12/04/2024 12:06 AM CDT us Nasim Payan MD LAB BLOOD ORDERABLES Final Result MARY MAYA [address] [facility] [place] [address] * (ABNORMAL) CBC with auto differential (12/04/2024 12:02 AM CDT) [facility] WBC 6.51 3.80 - 9.90 K/cumm Hgb 10.7(L) 11.9 - 15.5 g/dL [facility] Hct 30.4(L) 35.6 - 45.5 % [facility] Plt 182 150 - 400 K/cumm [facility] MPV 10.2 9.1 - 12.3 fL [facility] RBC 3.66(L) 3.90 - 5.20 M/cumm [facility] MCV 83.1 81.3 - 96.4 fL [facility] MCH 29.2 27.1 - 33.3 pg [facility] MCHC 35.2 32.3 - 35.7 g/dL [facility] RDW CV 14.3 11.1 - 14.9 % [facility] RDW SD 42.6 35.7 - 48.1 fL [facility] NRBC abs 0.00 0.00 - 0.01 K/cumm [facility] Blood Venous blood specimen / Unknown 12/04/2024 12:02 AM CDT 12/04/2024 12:06 AM CDT us Nasim Payan MD LAB BLOOD ORDERABLES Final Result [facility] [address] [facility] Department of Laboratories [place], [place] [id number] * Comprehensive metabolic panel (12/04/2024 12:02 AM CDT) [facility] Sodium 138 135 - 145 mmol/L Potassium, pl 3.4 3.3 - 4.9 mmol/L [facility] Chloride 100 97 - 110 mmol/L [facility] CO2 24 22 - 32 mmol/L [facility] Anion gap 14 2 - 15 mmol/L [facility] BUN 8 6 - 25 mg/dL [facility] Creatinine 0.67 0.60 - 1.10 mg/dL [facility] Glucose 105 70 - 199 mg/dL [facility] Comment: Interpretive Data Fasting glucose >/= 126 mg/dl is diagnostic for diabetes. Fasting is defined as no caloric intake for at least 8 hours. Fasting glucose between 100 mg/dl to 125 mg/dl is diagnostic of prediabetes. In a patient with classic symptoms of hyperglycemia or hyperglycemic crisis, a random glucose >/= 200 mg/dl is diagnostic for diabetes. In the absence of unequivocal hyperglycemia, results should be confirmed by repeat testing. The classification and Diagnosis of Diabetes Diabetes Care 2021; 46: S19-S40. Current interpretive data was last revised 2022. Calcium 10.1 8.5 - 10.3 mg/dL [facility] Bilirubin, total <0.2 0.1 - 1.2 mg/dL [facility] Protein, pl 7.8 6.5 - 8.5 g/dL [facility] Albumin 4.6 3.5 - 5.0 g/dL [facility] Alk phos 50 40 - 130 Units/L [facility] ALT 25 7 - 45 Units/L [facility] AST 42 10 - 45 Units/L [facility] Blood 12/04/2024 12:0 2 AM CDT 12/04/2024 12:06 AM CDT Nasim Payan MD LAB BLOOD ORDERABLES Final Result MARY [address] [facility] Department [place] [address] * ECG 12 lead (12/03/2024 11:52 PM CDT) Ventricular Rate EKG/Min [address] [facility] Atrial Rate 91 BPM [facility] MS-Interval (MSEC) 136 ms [facility] QRS-Interval (MSEC) 80 ms [facility] QT-Interval (MSEC) 390 ms [facility] QTc [address] [facility] P [place] [address] [facility] R [place] [address] [facility] T [place] [address] [facility] Diagnosis Normal sinus rhythm Normal ECG When compared with ECG of 05-NOV-2023 14:56, No significant change Confirmed by MARIA FERNANDA GUERRIER M.D. ([id number]) on 12/07/2024 9:17:03 AM [facility] 12/03/2024 11:5 2 PM CDT 12/07/2024 9:17 AM CDT Narrative This result has an attachment
[2025-01-14] MEDS: diazePAM INJ (*CRX) 10 MG/2 ML SYRINGE 5 MG IV PUSH (02:06)
--- NOTE | 2025-01-14 02:06 | ED.GENADULT ---
HPI - General Adult General Chief complaint: Shortness of Breath/Dyspnea Stated complaint: SOB, NUMBNESS/TINGLING TO HANDS Time Seen by Provider: 01/14/25 01:00 History of Present Illness HPI narrative: This is a 24-year-old female presenting ED with chief complaint shortness of breath. Patient was at work when she started to feel dizzy and lightheaded. She had trouble breathing, tingling around her mouth and cramping in her hands. She felt like something was wrong. She then went home and the symptoms improved although she still felt quite tremulous. She then called an ambulance was brought to the hospital for evaluation. Patient is denying chest pain or shortness of breath. No lower extremity edema risk factors for DVT PE. Patient has never had a panic attack before. Related Data Allergies Allergy/AdvReac Type Severity Reaction Status Date / Time No Known Allergies Allergy Verified 01/14/25 00:28 Exam Narrative: APPEARANCE: Anxious appearing Head: atraumatic. EYES: EOMI, NOSE: Atraumatic NECK: Trachea midline RESPIRATORY: No increased rate of breathing clear to auscultation CARDIOVASCULAR: RRR, no peripheral edema ABDOMINAL: Non-distended soft nontender MUSCULOSKELETAl: No obvious deformities NEURO: Alert. Moving 4/4 extremities SKIN:: Warm, dry. Normal color PSYCHIATRIC: Anxious Course Vital Signs Vital signs: Vital Signs Temperature 98.1 F 01/14/25 00:09 Pulse Rate 97 01/14/25 00:09 Respiratory Rate 20 01/14/25 00:09 Blood Pressure 139/93 H 01/14/25 00:09 Pulse Oximetry 100 01/14/25 00:09 Oxygen Delivery Room Air 01/14/25 00:09 Temperature 98.1 F 01/14/25 00:09 Pulse Rate 80 01/14/25 01:41 Respiratory Rate 18 01/14/25 01:41 Blood Pressure 129/87 01/14/25 01:41 Pulse Oximetry 100 01/14/25 01:41 Oxygen Delivery Room Air 01/14/25 00:31 Medical Decision Making [facility] Narrative Medical decision making narrative: -Course: 24-year-old female presenting with a brief episode of shortness of breath, perioral tingling and hand cramping. Findings most consistent with a panic attack. The episode resolved by time she was interviewed in the ED. patient is still very anxious and was given dose of Valium. Chest x-ray was clear. EKG showed normal sinus rhythm with persistent juvenile T-wave inversions in V1 V3. Patient was monitored with no recurrence for symptoms she is feeling much better. Patient be discharged follow-up with primary care physician. Given return precautions. Patient requested some food before she left the ED. This was provided. -DDX includes but is not limited to: Anxiety, panic attack, pneumonia ACS PE dissection pneumothorax Vital Signs Vital Signs: Vital Signs Temperature 98.1 F 01/14/25 00:09 Pulse Rate 97 01/14/25 00:09 Respiratory Rate 20 01/14/25 00:09 Blood Pressure 139/93 H 01/14/25 00:09 Pulse Oximetry 100 01/14/25 00:09 Oxygen Delivery Room Air 01/14/25 00:09 Temperature 98.1 F 01/14/25 00:09 Pulse Rate 80 01/14/25 01:41 Respiratory Rate 18 01/14/25 01:41 Blood Pressure 129/87 01/14/25 01:41 Pulse Oximetry 100 01/14/25 01:41 Oxygen Delivery Room Air 01/14/25 00:31 Lab Data 01/14/25 00:31 01/14/25 00:31 Labs: Lab Results 01/14/25 01/14/25 Range/Units 00:26 00:31 WBC 7.2 (4.5-10.0) K/mm3 RBC 4.02 L (4.2-5.4) M/mm3 Hgb 11.4 L (12.0-15.0) g/dL Hct 33.7 L (37.0-47.0) % MCV 83.8 (80-100) fl MCH 28.4 (26-34) pg MCHC 33.8 (32-36) g/dl RDW 15.8 H (11.5-14.5) % Plt Count 241 (150-375) k/mm3 MPV 10.5 H (7.4-10.4) fl Immature Gran % (Auto) 0.1 (0-0.5) % Neut % (Auto) 42.4 L (45.5-73.1) % Lymph % (Auto) 45.1 H (18.3-44.2) % [place] % (Auto) 11.9 H (2.6-8.5) % Eos % (Auto) 0.1 (0-4.4) % Baso % (Auto) 0.4 (0.2-1.2) % Lymph # (Auto) 3.25 H (0.9-3.2) K/mm3 [place] # (Auto) 0.9 H (0.1-0.6) K/mm3 Eos # (Auto) 0.0 (0-0.3) K/mm3 Baso # (Auto) 0.0 (0.0-0.1) K/mm3 Abs Immat Gran (auto) 0.01 (0.00-0.031) K/mm3 Absolute Neuts (auto) 3.0 (1.3-6.7) K/mm3 Absolute Nucleated RBC 0.000 (0.0-0.012) K/mm3 Nucleated RBC % 0.0 (0.0-0.2) % Sodium 138 (137-145) mmol/L Potassium 3.1 L (3.4-5.0) mmol/L Chloride 105 (98-107) mmol/L Carbon Dioxide 19 L (22-30) mmol/L Anion Gap 14 H (4-12) mmol/L BUN 8 (7-17) mg/dL Creatinine 0.67 L (0.7-1.0) mg/dL Estim Creat Clear Calc 85 ml/min Estimated GFR > 60 (59 - ) Glucose 107 (65-110) mg/dL Calcium 9.9 (8.4-10.2) mg/dL Total Bilirubin 0.2 (0.2-1.3) mg/dL AST 47 H (14-36) U/L ALT 33 (6-35) U/L Alkaline Phosphatase 79 (38-126) U/L Total Protein 8.0 (6.3-8.2) g/dL Albumin 4.9 (3.5-5.1) g/dL POC Urine HCG, Qual Negative (Negative) Discharge Plan Discharge Clinical Impression: Anxiety Patient Disposition: Home Condition: Stable Instructions: Antibiotic Form, Anxiety (ED) Additional Instructions: You were seen in the ED after episode of shortness of breath mouth tingling hand cramping. This appears to be a panic attack. Please follow-up with the primary care physician listed below for further management. If you develop fevers shortness of breath chest pain or any new or worsening symptoms please return to the emergency department immediately. Patient Language: Occitan Follow-up/Referrals: Fabricio Mcdonnell MD [Physician] - 1 Week (ED F/U. Establish PCP. )
[2025-01-14] MEDS: POTASSIUM CHLORIDE 20 MEQ PACKET (FOR LIQUID) 40 MEQ PO (02:58)
== END 2025-01-14 03:19 | disposition home or self-care (01) ==
PROVIDERS: Emergency Provider Emergency Medicine
DX: F41.9 Anxiety disorder, unspecified (principal)
CPT/HCPCS: 36415; 71046; 80053; 81025; 85025; 93005; 96374; 99284; A9270; J3360

== ENCOUNTER 2025-04-25 23:38 | Emergency (ER) | payer SELFPAY ==
[2025-04-25 23:44] VITALS: BP 132/87; PULSE 98; RESP 18; TEMP 36.7; O2SAT 98
--- NOTE | 2025-04-26 01:08 | ED_ITS ---
HPI - Dental/Oral General Chief complaint: Dental/Oral Stated complaint: sore throat/dental pain Time Seen by Provider: 04/26/25 01:05 History of Present Illness HPI Narrative: Patient is a 24-year-old female who presents to the emergency department this evening complaining of toothache. Patient states that she has a a cavity to her right upper molar. Does not have a dentist. States that the pain started approximately 2 hours ago. She took Tylenol prior to arrival with no relief for symptoms. Denies any additional symptoms or concerns at this time. Denies any fevers. Related Data Allergies Allergy/AdvReac Type Severity Reaction Status Date / Time No Known Allergies Allergy Verified 04/25/25 23:43 Review of Systems Review of Systems: All systems are reviewed and are negative unless stated otherwise in the HPI. Exam Narrative: General: Alert, awake, afebrile, in no acute distress. HEENT: PERRL, no rhinorrhea, no post nasal drip, oropharynx clear, dental cavity noted to the right upper molar, no dental abscess. Neck: Trachea midline, no JVD, no lymphadenopathy. Cardiovascular: Regular rate and rhythm, no murmurs, rubs or gallops, no peripheral edema. Respiratory: Clear to auscultation bilaterally, no tachypnea, no wheezing, no rhonchi, no rubs, no respiratory distress. Abdomen: Soft, nontender, nondistended, no rebound, no guarding, no peritoneal signs. Musculoskeletal: No joint swelling or deformity, normal muscle tone. Skin: No rashes or petechia, no signs of infection. Psychiatric: Alert and oriented, normal behavior and judgment for situation. Neurological: Alert and oriented to person, place, and time. Follows all commands. No focal deficits, speech is clear and fluent. Course Vital Signs Vital signs: Vital Signs Temperature 98.1 F 04/25/25 23:44 Pulse Rate 98 04/25/25 23:44 Respiratory Rate 18 04/25/25 23:44 Blood Pressure 132/87 04/25/25 23:44 Pulse Oximetry 98 04/25/25 23:44 Oxygen Delivery Room Air 04/25/25 23:44 Temperature 98.1 F 04/25/25 23:44 Pulse Rate 98 04/25/25 23:44 Respiratory Rate 18 04/25/25 23:44 Blood Pressure 132/87 04/25/25 23:44 Pulse Oximetry 98 04/25/25 23:44 Oxygen Delivery Room Air 04/25/25 23:44 MDM - Dental/Oral MDM Narrative Medical decision making narrative: The patient was evaluated by myself in the emergency department. History is obtained from patient who is an independent historian and physical exam was performed. External medical records were reviewed at this time. Patient was administered an oral [place] 5-325mg. Differential diagnosis considerations include dental caries, dental abscess. Comorbidities impacting this visit include none. I have evaluated and discussed social determinants of health with the patient that could potentially impact subsequent diagnosis and treatment plans. On repeat assessment of the patient, reevaluation revealed that the patient is doing well and is in no acute distress. Patient symptoms have improved since she arrived to our emergency department. Repeat vital signs were all reviewed and noted to be stable. Differential diagnosis and treatment plan were discussed with the patient at bedside. Patient agrees with discussion and after shared medical decision making agrees with discharge. All questions were answered to the patient's satisfaction. Patient will follow up with the list of dentists she was provided today in 3-5 days. A script for Augmentin was sent to patient's pharmacy to take as prescribed she seen by dentist. Patient was provided with strict return precautions and instructed to return to the emergency department if any new or worsening symptoms develop. The patient was discharged in stable condition. Discharge Plan Discharge Clinical Impression: Toothache, Dental caries Patient Disposition: Home Condition: Improved Instructions: Antibiotic Form, Toothache (ED) Additional Instructions: Please follow-up with the list of dentists that you were provided today within the next 3-5 days. Use the prescribed medications as instructed. Return to ED if any new or worsening symptoms develop. Patient Language: Eritrean Prescriptions: New amoxicillin-pot clavulanate 875-125 mg tablet 1 tablet PO Q12H 5 Days Qty: 10 0RF Follow-up/Referrals: PHYSICIAN,HEAD FILTER TANK TENDER HELPER [Primary Care Provider, Internal Medicine] Stand Alone Forms: Work/School Release IP Time of Disposition: 01:12
[2025-04-26] MEDS: HYDROcodone/acetaminophen (*CRX) 5-325 MG TABLET 1 TAB PO (01:16)
[2025-04-26 01:18] VITALS: BP 124/78; PULSE 76; RESP 16; TEMP 37.1; O2SAT 98
--- OUTSIDE RECORDS SUMMARY | 2025-04-26 01:23 | XMS_ITS | Clinical Summary ---
Author Organization [facility] Address [address] [place] [id number] Care Team Providers Care Processing Specialist Name Role Phone None, Provider MD Primary Care Provider Unavaila ble Allergies No known active allergies Medications phenazopyridine 200 MG tablet Take 1 tablet (200 mg total) by mouth 3 (three) times daily as needed for Pain. 6 tablet 06/19/2019 Active Social History Tobacco Use Types Packs/Day Years Used Date Smoking Tobacco: Never Smokeless Tobacco: Never Tobacco Cessation:Counseling Given: Not Answered Alcohol Use Standard Drinks/Week Comments Yes 0 (1 standard drink = 0.6 oz pur e alcohol) every other day Comments No Sex and Gender Information Value Date Recorded Sex Assigned at Not on file Legal Sex Female 6:04 PM CDT Gender Identity Not on file Sexual Orientation Not on file Last Filed Vital Signs Vital Sign Reading Time Taken Comments Blood Pressure 126/87 01/21/2023 3:53 PM CDT Pulse 89 01/21/2023 5:36 PM CDT Temperature 37 C (98.6 F) 01/21/2023 3:53 PM CDT Respiratory Rate 16 01/21/2023 3:53 PM CDT Oxygen Saturation 99% 01/21/2023 3:53 PM CDT Inhaled Oxygen Concentration - - Weight 48.8 kg (107 lb 9.4 oz) 01/21/2023 3:53 P M CDT Height 165.1 cm (5' 5) 01/21/2023 3:53 PM CDT Body Mass Index 17.9 01/21/2023 3:53 PM CDT Plan of Treatment Health Maintenance Due Date Last Done Comments Annual Physical 2002 Hepatitis C 2017 COVID-19 Vaccine ( season) 2024 11/09/2021, 08/07/2021 Cervical Cancer Screening Pap Smear (Age 21 to 29) Every 3 Years 04/08/2025 04/08/2022 Cervical Cancer Screening 04/08/2025 DTaP, Tdap and Td Vaccines (7 - Td or Tdap) 09/24/2032 09/24/2022, 04/19/2011, 05/01/2005, Additional history exists Hepatitis B Vaccines Completed 07/17/2002, 04/22/2000, 1999 HPV Vaccines Completed 02/17/2014, 02/2012, 07/17/2011 Meningococcal Vaccine Completed 11/28/2016, 011 Meningococcal B Vaccine Aged Out No l onger eligible based on patient's age to complete this topic Pneumococcal Vaccine: Pediatrics (0 to 5 Years) and At-Risk Patients (6 to 49 Years) Aged Out No longer eligible based on patient's age to complete this topic RSV Immunizations Under 20 Months Aged Out No longer eligible based on patient's age to complete this topic Insurance [employer] Care Teams Processing Specialist Relationship Specialty Start Date End Date None, Provider, PCP - General 06/19/19
--- OUTSIDE RECORDS SUMMARY | 2025-04-26 01:24 | XMS_ITS | Encounter Summary ---
Author Organization [facility] Address [address] [place] [address] Care Team Providers Care Pediatric Dental Assistant Name Role Phone Silvia Vanegas CERTIFIED LEGAL SECRETARY SPECIALIST-PACKER DENTURE Primary Care Provi danita Encounter Details Date Type Department Care Team (Late st Contact Info) Description 09/24/2022 Ophth Exam [facility] [address] [facility], [place] [phone] Emma Tate DO [address] [place] [id number] Social History Tobacco Use Types Packs/Day Years Used Date Smoking Tobacco: Some Days Smokeless Tobacco: Never Comments:marajuana Alcohol Use Standard Drinks/Week Comments Yes 0 (1 standard drink = 0.6 oz pur e alcohol) occ AUDIT-C Answer Date Recorded Q1: How often do you have a drink containing alc ohol? 2-4 times a month 09/24/2022 Q2: How many drinks containi ng alcohol do you have on a typical day when you are drinking? 1 or 2 09/24/2022 Q3: How often do you have si x or more drinks on one occasion? Never 09/24/2022 Overall Financial Resource Strain (CARDIA) Answe r Date Recorded How hard is it for you to pa y for the very basics like food, housing, medical care, and heating? Not hard at all 09/24/2022 [facility] [place] [facility] Occupat ional Health - Occupational Stress Questionnaire Answer Date Recorded Do you feel stress - tense, restless, nervous, or anxious, or unable to sleep at night because your mind is troubled all the time - these days? Not at all 09/24/2022 Hunger Vital Sign Answer Date Recorded Within the past 12 months, y ou worried that your food would run out before you got the money to buy more. Never true 09/24/19 Within the past 12 months, t he food you bought just didn't last and you didn't have money to get more. Never true 09/24/2022 PRAPARE - Transportation Answer Date Re corded In the past 12 months, has l ack of transportation kept you from medical appointments or from getting medications? No 09/03 In the past 12 months, has l ack of transportation kept you from meetings, work, or from getting things needed for daily living? No 09/24/2022 Housing Stability Vital Sign Answer Yoel e Recorded In the last 12 months, was t here a time when you were not able to pay the mortgage or rent on time? No 09/24/2022 In the last 12 months, how many places have you lived? 1 09/24/2022 In the last 12 months, was t here a time when you did not have a steady place to sleep or slept in a care home (including now)? No 09/24/2022 Comments No Sex and Gender Information Value Date Recorded Sex Assigned at Not on file Legal Sex Female 5:29 PM CDT Gender Identity Not on file Sexual Orientation Not on file documented as of this encounter Functional Status * Question Answer Date of Assessment Author Q1: How often do you have a drink containing alcohol? 2-4 times a month 09/24/2022 3:50 PM Evert Richard RN Q2: How many drinks containing alcohol do you have on a typical day when you are drinking? 1 or 2 09/24/2022 3:50 PM Evert Richard RN Q3: How often do you have six or more drinks on one occasion? Never 09/24/2022 3:50 PM Evert Richard RN * Audit-C Score Answer Date of Assessment Author 2 09/24/2022 3:50 PM ART DEPARTMENT HEAD Stacey Roman RN * Is person deaf or have serious hearing difficulty? Answer Date of Assessment Author No 01/30/2017 1:12 AM Richie Mckenzie RN * Is person blind or have serious difficulty seeing? Answer Date of Assessment Author No 01/30/2017 1:12 AM Richie Mckenzie RN * Does person have serious difficulty walking/climbing stairs? Answer Date of Assessment Author No 01/30/2017 1:12 AM Richie Mckenzie RN * Does person have difficulty dressing/bathing? Answer Date of Assessment Author No 01/30/2017 1:12 AM Richie Mckenzie RN * Does person have difficulty doing errands alone? Answer Date of Assessment Author No 01/30/2017 1:12 AM Richie Mckenzie RN documented as of this encounter Mental Status * Does person have difficulty concentrating/remembering/making decisions? Answer Entry Date Author No 01/30/2017 1:12 AM Richie Mckenzie RN documented in this encounter Plan of Treatment Not on file documented as of this encounter Visit Diagnoses Not on filedocumented in this encounter Care Teams Pediatric Dental Assistant Relationship Specialty Start Date End Date Silvia Vanegas APRN-PACKER DENTURE PCP - General 01/29/17 documented as of this encounter
--- OUTSIDE RECORDS SUMMARY | 2025-04-26 01:24 | XMS_ITS | Encounter Summary ---
Author Organization [facility] Address [address] [facility] [address] Care Team Providers Care Tube Blower Name Role Phone Silvia Vanegas PATTERNMAKER PLASTICS-BILINGUAL INSTRUCTOR Primary Care Provi danita Encounter Details Date Type Department Care Team (Late st Contact Info) Description 09/24/2022 Ophth Exam [facility] [address] [place] [phone] Nasim Herr MD [address] [facility] [address] [place] [id number] Social History Tobacco Use Types Packs/Day Years [...] and heating? Not hard at all 09/24/2022 [place] [facility] Occupat ional Health - Occupational Stress [...] place to sleep or slept in a fdc (including now)? No 09/24/2022 Comments No Sex [...] of Assessment Author 2 09/24/2022 3:50 PM Stacey Richard RN * Is person deaf or have [...] on filedocumented in this encounter Care Teams Tube Blower Relationship Specialty Start Date End Date Silvia Vanegas APRN-BILINGUAL INSTRUCTOR PCP - General 01/29/17 documented as of this encounter
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
--- OUTSIDE RECORDS SUMMARY | 2025-04-26 01:24 | XMS_ITS | Clinical Summary ---
Author Organization [facility] Address [address] [place] [address] Care Team Providers Care Ve Teacher Name Role Phone Unknown, Notinfile Primary Care [...] - Start FA, MV and thiamine - Warehouse General Laborer on cessation - SW provided resources for [...] malnutrition 02/01/2023 Depression 02/01/2023 Tobacco abuse 02/01/2023 Surgical History Surgery Date Site/Laterality Comments EYE SURGERY Left Medical History Medical History Date Comments Childhood asthma Social History Tobacco Use Types Packs/Day Years Used Date Smoking Tobacco: Every Day Cigarettes Cigars Tobacco Cessation:Ready to Q uit: Not Asked; Counseling Given: Not Answered Alcohol Use Standard Drinks/Week Comments Yes 0 (1 standard drink = 0.6 oz pur e alcohol) social Social Connection and Isolation Panel Answer Date Recorded In a typical week, how many times do you talk on the phone with family, friends, or neighbors? More than three times a week 02/04/2023 How often do you get togethe r with friends or relatives? More than three times a week 02/04/2023 How often do you attend chur ch or tenriism services? Never 02/04/2023 Do you belong to any clubs o r organizations such as sabianist groups, unions, fraternal or athletic groups, or [...] place to sleep or slept in a half-way (including now)? No 02/04/2023 Personal Safety Answer Date Recorded Have you ever been in or are you currently in a harmful physical or emotional relationship or is someone making you feel afraid or unsafe? Denies 12/04/2024 Comments No Sex and Gender Information Value Date Recorded Sex Assigned at Not on file Legal Sex Female 8:44 PM GAS REGULATOR REPAIRER HELPER Gender Identity Not on file Sexual Orientation [...] 5:50 PM CDT Height 167.6 cm (5' 6) 11/12/2024 5:50 PM CDT Body Mass Index 17.45 11/12/2024 5:50 PM CDT Plan of Treatment Health Maintenance Due Date Last Done Comments Cervical Cancer Screening 1999 Depression Screening 1999 Hepatitis C Screening 1999 Regular Well Visit/Exam 18-64 2017 Pneumococcal vaccine <65 (1 of 2 - PCV) 2018 Covid-19 Vaccine (3 - 2023-2 5 season) 2024 11/09/2021, 08/07/2021 Influenza Vaccine (#1) 2025 , 11/26/2018, 07/01/2012, Additional history exists DTaP/Tdap/Td Vaccine (7 - Td or Tdap) 09/24/2032 09/24/2022, 04/19/2011, 05/01/2005, Additional history exists Hepatitis B Screening Completed 07/17/2002 , 04/22/2000, 1999 Varicella Vaccines Completed 12/27/2009, 07/17/2002 HPV Vaccines Completed 02/17/2014, 02/2012, 07/17/2011 Insurance [facility] Advance Directives For more information, please contact: [phone] * Full Code (Latest Code Status on File) Date Activated Date Inactivated Comments 11/12/2024 3:14 AM 11/16/2024 10:44 PM * Full Code Date Activated Date Inactivated Comments 02/01/2023 11:10 PM 02/06/2023 2:56 PM Care Teams Ve Teacher Relationship Specialty Start Date End Date Unknown, Notinfile PCP - General 11/05/23
== END 2025-04-26 01:26 | disposition home or self-care (01) ==
LOC: ANHED 04-26 01:22
PROVIDERS: Emergency Provider Emergency Medicine
DX: K02.9 Dental caries, unspecified (principal)
CPT/HCPCS: 99283; A9270

== ENCOUNTER 2025-06-06 21:57 | Emergency (ER) | payer SELFPAY ==
--- NOTE | ~2025-06-06 | XR_ITS ---
Examination: XR chest 1V portable Clinical History: CHEST PAIN / and SOB Comparison: 01/14/2025 Technique: Portable AP Findings: Heart size normal. Lungs clear. No acute bony abnormality. IMPRESSION: 1. No acute cardiopulmonary findings given portable technique. Reviewed, dictated and finalized at location R.
[2025-06-06 21:59] VITALS: BP 128/91; PULSE 94; RESP 13; TEMP 36.5; O2SAT 100
--- OUTSIDE RECORDS SUMMARY | 2025-06-06 21:59 | XMS_ITS | Encounter Summary ---
Author Organization [facility] Address [address] [place] [address] Care Team Providers Care Sales Development Director Name Role Phone Silvia Vanegas MOLD WORKER-STOCKBROKING DEALER Primary Care Provi danita Encounter Details Date Type Department Care Team (Late st Contact Info) Description 09/24/2022 Ophth Exam [facility] [address] [facility] [place] [address] Emma Tate DO [address] [place] [phone] Social History Tobacco Use Types Packs/Day Years [...] and heating? Not hard at all 09/24/2022 [facility] [place] of Occupat ional Health - Occupational Stress [...] of Assessment Author 2 09/24/2022 3:50 PM UNIFORMS SALES REPRESENTATIVE Stacey Roman RN * Is person deaf [...] on filedocumented in this encounter Care Teams Sales Development Director Relationship Specialty Start Date End Date Silvia Vanegas APRN-STOCKBROKING DEALER PCP - General 01/29/17 documented as of this encounter
--- OUTSIDE RECORDS SUMMARY | 2025-06-06 21:59 | XMS_ITS | Clinical Summary ---
Author Organization [facility] Address [address] [place] [address] Care Team Providers Care Artificial Breeding Technician Name Role Phone Silvia Vanegas Emery HACKETT-RN CLINICIAN Primary Care Provi danita Source Comments [facility],non-owned Affiliates and Associated Physician Practices is amultiple site organization consisting of ambulatory clinics and hospital sitesin [place], [place], [place] and [place]. This disclosure is being madepursuant to the Care Everywhere program and may not contain all information available regarding this patient. Last updated 18.[facility] Allergies No known active allergies Medications * [...] and heating? Not hard at all 09/24/2022 [facility] [place] of Occupat ional Health - Occupational Stress [...] place to sleep or slept in a senior care (including now)? No 09/24/2022 Comments No Sex [...] PAP SMEAR 2020 CHLAMYDIA/GONORRHEA SCREENING 04/08/2023 04/08/2022 DEPRESSION SCREENING 09/02/2024 COVID-19 VACCINE ( - season) 2025 11/09/2021, 08/07/2021 INFLUENZA VACCINE (#1) 2025 , 11/26/2018, 07/01/2012, [...] this topic Medical Devices Implanted Type Area Meat Carver Device Identifier Shelf Expiration Date Model / Serial / Lot Fan Orbital Mesh Plate 0.3mm Thick Implanted:Qty: 1 on 10/01/2022 by Lucy Soto MD at [facility] Left: [employer] Trauma 10/01/2022 [id number] / N/A / N/A Description:SOAKED IN [place] BEFORE IMPLANTING Titanium Self Drilling Screw 4mm Implanted:Qty: 2 on 10/01/2022 by Lucy Soto MD at [facility] Left: [employer] Trauma 10/01/2022 [id number] / N/A / N/A Insurance [place] [address] [facility] T[facility] THIRD GREEN PARTY LIABILITY Republican Liability Advance Directives * Full Code (Latest Code Status on File) Date Activated Date Inactivated Comments 10/01/2022 5:11 PM 10/01/2022 7:09 PM * Full Code Date Activated Date Inactivated Comments 09/24/2022 3:30 AM 09/24/2022 9:46 PM * Full Code Date Activated Date Inactivated Comments 01/30/2017 1:08 AM 01/30/2017 8:52 PM Care Teams Artificial Breeding Technician Relationship Specialty Start Date End Date Silvia Vanegas, DIRECTOR HOME-RN CLINICIAN PCP - General 01/29/17
--- OUTSIDE RECORDS SUMMARY | 2025-06-06 21:59 | XMS_ITS | Encounter Summary ---
Author Organization [facility] Address [address] [place] [address] Care Team Providers Care Supervisor Of Communications Name Role Phone Silvia Vanegas SKILLED HELPER-RISK COMPLIANCE MANAGER Primary Care Provi danita Encounter Details Date Type Department Care Team (Late st Contact Info) Description 09/24/2022 Ophth Exam [facility] [address] [place] [phone] Nasim Herr MD [address] [facility] [address] [place] [id number] Social History Tobacco Use Types Packs/Day [...] and heating? Not hard at all 09/24/2022 [place] of Occupat ional Health - Occupational Stress [...] place to sleep or slept in a long-term (including now)? No 09/24/2022 Comments No Sex [...] on filedocumented in this encounter Care Teams Supervisor Of Communications Relationship Specialty Start Date End Date Silvia Vanegas APRN-RISK COMPLIANCE MANAGER PCP - General 01/29/17 documented as of this encounter
--- OUTSIDE RECORDS SUMMARY | 2025-06-06 21:59 | XMS_ITS | Clinical Summary ---
Author Organization [facility] Address [address] [place] [address] Care Team Providers Care Core Paster Name Role Phone Unknown, Notinfile Primary Care [...] - Start FA, MV and thiamine - Director Of Vocational Training on cessation - SW provided resources for [...] often do you attend chur ch or faith services? Never 02/04/2023 Do you belong to any clubs o r organizations such as confucianism groups, unions, fraternal or athletic groups, or [...] place to sleep or slept in a correction (including now)? No 02/04/2023 Personal Safety Answer Date Recorded Have you ever been in or are you currently in a harmful physical or emotional relationship or is someone making you feel afraid or unsafe? Denies 12/04/2024 Comments No Sex and Gender Information Value Date Recorded Sex Assigned at Not on file Legal Sex Female 8:44 PM HAND OUTSIDE CUTTER Gender Identity Not on file Sexual Orientation [...] - PCV) 2018 Covid-19 Vaccine (3 - 2024-2 6 season) 2025 11/09/2021, 08/07/2021 Influenza Vaccine (#1) 2025 , 11/26/2018, 07/01/2012, Additional history exists DTaP/Tdap/Td Vaccine (7 - Td or Tdap) 09/24/2032 09/24/2022, 04/19/2011, 05/01/2005, Additional history exists Hepatitis B Screening Completed 07/17/2002 , 04/22/2000, 1999 Varicella Vaccines Completed 12/27/2009, 07/17/2002 HPV Vaccines Completed 02/17/2014, 02/2012, 07/17/2011 Insurance [facility] Advance Directives For more information, please contact: [phone] * Full Code (Latest Code Status on File) Date Activated Date Inactivated Comments 11/12/2024 3:14 AM 11/16/2024 10:44 PM * Full Code Date Activated Date Inactivated Comments 02/01/2023 11:10 PM 02/06/2023 2:56 PM Care Teams Core Paster Relationship Specialty Start Date End Date Unknown, Notinfile PCP - General 11/05/23
--- NOTE | 2025-06-06 22:34 | ECG_ITS ---
Test Date: 2025-06-06 22:51:25 Measurements Intervals [place] Rate: 90 P: 81 CA: 152 QRS: 62 QRSD: 87 T: 0 QT: 350 QTc: 428 Interpretive Statements SINUS RHYTHM POSSIBLE LEFT ATRIAL ENLARGEMENT NONSPECIFIC ST-T-WAVE ABNORMALITY- ANT/INF LEADS BASELINE ARTIFACT- I, II, III, AVR, AVL, AVF, V1 BORDERLINE ECG Compared to ECG 01/14/2025 00:12:25 No significant changes Electronically Signed On 06-07-2025 06:08:26 CDT by Nick Malone D.O.
[2025-06-06 23:11] LABS: Hematocrit 34.7 % (37.0-47.0); Hemoglobin 12.1 g/dL (12.0-15.0); Immature Granulocyte Percent A 0.2 % (0-0.5); Lymphocytes Absolute Auto 2.46 K/mm3 (0.9-3.2); Mean Corpuscular HGB Conc 34.9 g/dl (32-36); Mean Corpuscular Hemoglobin 29.2 pg (26-34); Mean Corpuscular Volume 83.6 fl (80-100); Nucleated Red Blood Cells Absolute Auto 0.000 K/mm3 (0.0-0.012); Nucleated Red Blood Cells Perc 0.0 % (0.0-0.2); Platelet Count Result 250 k/mm3 (150-375); Red Blood Count 4.15 M/mm3 (4.2-5.4); White Blood Count 6.4 K/mm3 (4.5-10.0)
[2025-06-06 23:17] VITALS: BP 119/90; PULSE 93; RESP 15; O2SAT 100
[2025-06-06 23:36] LABS: Alanine Aminotransferase 18 U/L (6-35); Albumin Level 4.9 g/dL (3.5-5.1); Alkaline Phosphatase 42 U/L (38-126); Anion Gap 15 mmol/L (4-12); Aspartate Amino Transferase 36 U/L (14-36); Bilirubin,Total 0.4 mg/dL (0.2-1.3); Blood Urea Nitrogen 8 mg/dL (7-17); Calcium 9.2 mg/dL (8.4-10.2); Carbon Dioxide 20 mmol/L (22-30); Chloride 104 mmol/L (98-107); Estimated CRCL calculation 99 ml/min; Estimated Glomerular Filt Rate > 60; Glucose 86 mg/dL (65-110); Potassium 3.7 mmol/L (3.4-5.0); Sodium 139 mmol/L (137-145); Total Protein 8.6 g/dL (6.3-8.2)
[2025-06-07] VITALS (21 sets, daily range): BP systolic 103–132; BP diastolic 62–91; PULSE 69–115; RESP 13–25; O2SAT 96–100
--- OUTSIDE RECORDS SUMMARY | 2025-06-07 01:09 | XMS_ITS | Encounter Summary ---
Author Organization [facility] Address [address] [place] [address] Care Team Providers Care Melter Supervisor Open Hearth Furnace Name Role Phone Silvia Vanegas CONCERT MANAGER-TRAFFIC CONTROL SPECIALIST Primary Care Provi danita Encounter Details Date Type Department Care Team (Late st Contact Info) Description 09/24/2022 Ophth Exam [facility] [address] [place] [phone] Nasim Herr MD [address] [facility] [address] [place] [address] Social History Tobacco Use Types Packs/Day [...] and heating? Not hard at all 09/24/2022 [place] of Occupat ional Health - Occupational Stress [...] place to sleep or slept in a group home (including now)? No 09/24/2022 Comments No [...] on filedocumented in this encounter Care Teams Melter Supervisor Open Hearth Furnace Relationship Specialty Start Date End Date Silvia Vanegas APRN-TRAFFIC CONTROL SPECIALIST PCP - General 01/29/17 documented as of this encounter
--- OUTSIDE RECORDS SUMMARY | 2025-06-07 01:09 | XMS_ITS | Clinical Summary ---
Author Organization [facility] Address [address] [place] [address] Care Team Providers Care Job Superintendent Name Role Phone None, Provider MD Primary [...] Comments Annual Physical 2002 Hepatitis C 2017 Cervical Cancer Screening Pap Smear (Age 21 to 29) Every 3 Years 04/08/2025 04/08/2022 Cervical Cancer Screening 04/08/2025 COVID-19 Vaccine ( season) 2025 11/09/2021, 08/07/2021 DTaP, Tdap and Td Vaccines (7 - [...] patient's age to complete this topic Insurance [employer] [facility] Care Teams Job Superintendent Relationship Specialty Start Date End Date None, Provider, PCP - General 06/19/19
--- OUTSIDE RECORDS SUMMARY | 2025-06-07 01:09 | XMS_ITS | Encounter Summary ---
Author Organization [facility] Address [address] [place] [address] Care Team Providers Care Support Worker Name Role Phone Silvia Vanegas POWERHOUSE ELECTRICIAN-GELATIN PLANT SUPERVISOR Primary Care Provi danita Encounter Details Date Type Department Care Team (Late st Contact Info) Description 09/24/2022 Ophth Exam [facility] [address] [facility], [place] [address] Emma Tate DO [address] [place] [phone] Social History Tobacco Use Types Packs/Day Years [...] and heating? Not hard at all 09/24/2022 [facility] [place] of Occupat ional Health - Occupational Stress [...] place to sleep or slept in a chcf (including now)? No 09/24/2022 Comments No Sex [...] of Assessment Author 2 09/24/2022 3:50 PM VETERINARY PHYSIOLOGIST Stacey Roman RN * Is person deaf [...] on filedocumented in this encounter Care Teams Support Worker Relationship Specialty Start Date End Date Silvia Vanegas APRN-GELATIN PLANT SUPERVISOR PCP - General 01/29/17 documented as of this encounter
--- OUTSIDE RECORDS SUMMARY | 2025-06-07 01:09 | XMS_ITS | Clinical Summary ---
Author Organization [facility] Address [address] [place] [address] Care Team Providers Care Plate Painter Apprentice Name Role Phone Silvia Vanegas Emery HACKETT-DEPOT AGENT Primary Care Provi danita Source Comments [facility],non-owned Affiliates and Associated Physician Practices is amultiple site organization consisting of ambulatory clinics and hospital sitesin [place], [place], [place] and [place]. This disclosure is being madepursuant to the Care Everywhere program and may not contain all information available regarding this patient. Last updated 18.[facility] Allergies No known active allergies Medications * [...] and heating? Not hard at all 09/24/2022 [facility] [place] of Occupat ional Health - Occupational Stress [...] this topic Medical Devices Implanted Type Area Storage Battery Charger Device Identifier Shelf Expiration Date Model / Serial / Lot Fan Orbital Mesh Plate 0.3mm Thick Implanted:Qty: 1 on 10/01/2022 by Lucy Soto MD at [facility] Left: [employer] Trauma 10/01/2022 [id number] / N/A / N/A Description:SOAKED IN [place] BEFORE IMPLANTING Titanium Self Drilling Screw 4mm Implanted:Qty: 2 on 10/01/2022 by Lucy Soto MD at [facility] Left: [employer] Trauma 10/01/2022 [id number] / N/A / N/A [place] [address] [facility] T[facility] THIRD CONSTITUTION PARTY LIABILITY [employer] Party Liability Advance Directives * Full Code (Latest Code Status on File) Date Activated Date Inactivated Comments 10/01/2022 5:11 PM 10/01/2022 7:09 PM * Full Code Date Activated Date Inactivated Comments 09/24/2022 3:30 AM 09/24/2022 9:46 PM * Full Code Date Activated Date Inactivated Comments 01/30/2017 1:08 AM 01/30/2017 8:52 PM Care Teams Plate Painter Apprentice Relationship Specialty Start Date End Date Silvia Vanegas, APPLICATION CHEMIST-DEPOT AGENT PCP - General 01/29/17
--- OUTSIDE RECORDS SUMMARY | 2025-06-07 01:09 | XMS_ITS | Clinical Summary ---
Author Organization [facility] ([place], [place]) Address [address] [place] [address] Care Team Providers Care Salesperson Furs Name Role Phone Unknown, Notinfile Primary Care [...] - Start FA, MV and thiamine - Tapper Hand on cessation - SW provided resources for [...] often do you attend chur ch or adventism services? Never 02/04/2023 Do you belong to any clubs o r organizations such as denominational groups, unions, fraternal or athletic groups, or [...] place to sleep or slept in a residential (including now)? No 02/04/2023 Personal Safety Answer Date Recorded Have you ever been in or are you currently in a harmful physical or emotional relationship or is someone making you feel afraid or unsafe? Denies 12/04/2024 Comments No Sex and Gender Information Value Date Recorded Sex Assigned at Not on file Legal Sex Female 8:44 PM PRODUCTION GENERALIST Gender Identity Not on file Sexual Orientation [...] HPV Vaccines Completed 02/17/2014, 02/2012, 07/17/2011 Insurance [facility] Advance Directives For more information, please contact: [phone] * Full Code (Latest Code Status on File) Date Activated Date Inactivated Comments 11/12/2024 3:14 AM 11/16/2024 10:44 PM * Full Code Date Activated Date Inactivated Comments 02/01/2023 11:10 PM 02/06/2023 2:56 PM Care Teams Salesperson Furs Relationship Specialty Start Date End Date Unknown, Notinfile PCP - General 11/05/23
--- NOTE | 2025-06-07 01:30 | ED_ITS ---
HPI - SOB/Dyspnea General Chief Complaint: Shortness of Breath/Dyspnea Stated Complaint: SOB since noon, anxiety Time Seen by Provider: 06/07/25 00:55 Source: patient Mode of arrival: EMS Limitations: no limitations History of Present Illness HPI Narrative: Patient presents with report of shortness of breath that started around 4pm. States she had a chest pain/heaviness. Symptoms started while walking at work. Her hands started tingling and they spasmed, claw-like. She was dry heaving. No diagnosis of anxiety but when she had presented previously with similar she was told it might have been a panic attack. She was feeling nauseated but is asking for a sandwich as she believes it is because she hasn't eaten. No nausea/vomiting. She has had a little dry cough. Has underlying asthma but is out of albuterol inhaler and doesn't have a PCP. No edema, hemoptysis, recent surgery/trauma, history PE/dvt. Not on anticoagulation. Not on control or other hormones. Cardiac risk factors HTN:0 HLD:0 DM:0 Obese:0 Smoker: 2 cigarettes/day Personal history MD/TIA/CVA: 0 Fam Hx MD in first degree relative <65yo: 0 Related Data Allergies Allergy/AdvReac Type Severity Reaction Status Date / Time No Known Allergies Allergy Verified 04/25/25 23:43 [facility] Past Medical History Medical History Asthma Family History Family History Father Cerebrovascular accident approx 66 or 67yo Social History Social History Smoking status: Current every day smoker Tobacco type: cigarettes Occupation/Education: occupation Additional occupation/education comments: [employer] Exam 2 Narrative: GENERAL: Well-appearing, well-nourished, and in no acute distress. Stained sweatpants but otherwise hygiene appropriately. Thin. HEAD: Normocephalic, atraumatic. EYES: Non injected, non icteric. EOMI. Patient frequently looks to the left when answering questions. ENT: Nares clear, no rhinorrhea or epistaxis. Gross auditory acuity intact. NECK: Supple. No meningismus. CHEST: Speaking in full sentences. No respiratory distress. Lungs clear to auscultation bilaterally without appreciable wheezes or crackles HEART: Regular rate and rhythm. . ABDOMEN: Soft, nondistended. No rigidity or guarding. Not peritoneal EXTREMITIES: Normal range of motion. No lower extremity edema bilaterally. SKIN: Warm, dry, no rash. NEURO: No focal deficits. Alert and oriented. Answering questions. Following commands. Normal speech without aphasia or dysarthria. PSYCH: Congruent mood and affect. Course Vital Signs Vital signs: Vital Signs Temperature 97.7 F 06/06/25 21:59 Pulse Rate 94 06/06/25 21:59 Respiratory Rate 13 06/06/25 21:59 Blood Pressure 128/91 H 06/06/25 21:59 Pulse Oximetry 100 06/06/25 21:59 Oxygen Delivery Room Air 06/06/25 21:59 Temperature 97.7 F 06/06/25 21:59 Pulse Rate 69 06/07/25 05:20 Respiratory Rate 17 06/07/25 05:20 Blood Pressure 109/69 06/07/25 05:20 Pulse Oximetry 100 06/07/25 05:20 Oxygen Delivery Room Air 06/07/25 00:39 MDM - SOB/Dyspnea MDM Narrative Medical decision making narrative: Patient presents with an episode of SOB that started around 4pm. Associated with chest pain/heaviness and hands tingling as well as carpopedal spasm. Patient educated on the latter. In the emergency department she is afebrile with acceptable vital signs mildly elevated diastolic blood pressure. Notably not tachycardic or hypoxic. HEART SCORE History 2 highly suspicious 1 moderately suspicious 0 slightly suspicious History score [address] depression/elevation not due to LBBB, LVH, or digoxin [address] depression but LBBB, LVH, nonspecific repolarization changes 0 normal ECG score 0 Age 2 >/= 65 1 45-64 0 <45 Age score 0 Risk factors (HTN, hypercholesterolemia, DM, obesity with BMI >30, current smoker or cessation </=3mo), positive fam hx with parent or sibling with CVD before age 65, atherosclerotic disease (prior MD, PCI/CABG, CVA/TIA, or peripheral arterial disease) 2 >/= 3 risk factors or history of atherosclerotic dz 1 - 1-2 risk factors 0 no known risk factors Risk factor score 1 Initial Troponin 2 >3 times normal limit 1 1-3 times normal limit 0 less than or equal to normal limit Troponin score 0 Total HEART Score 1 PERC Rule Age greater than or equal to 50:0 HR greater than or equal to 100:0 O2 sat room air <95%:0 Unilateral leg swellin Hemoptysis:0 Recent surgery or trauma less than 4 wks ago requiring tx with general anesthesia:0 Prior PE or DVT:0 Hormone use (OCP, HRT or estrogenic hormone use in M/F patients): 0 Will defer obtaining D dimer. Normal renal function. She does slight anion gap and CO2 is initially bit low although not frankly acidotic. CBC with mild abnormalities on the differential but without profound anemia or leukocytosis. Patient had noted that she was nauseated although she is requesting something to eat and drink as she believes this is the cause. She says last time she was here she was noted to be very dehydrated and have marked electrolyte abnormalities. This does not appear to be the case today. Patient has some blood in her urine however she confirms that she is on her menstrual cycle. Viral swab negative. Did attempt to redraw troponin however it hemolyzed. At this point however, patient has been in the emergency department for 7 hours and has otherwise been stable and is very low risk. Will defer repeating. Provided contact info/referral for a PCP and provided refill of albuterol inhaler. Differential Diagnosis Differential diagnosis: Likely community acquired pneumonia, asthma with exacerbation, pulmonary embolism (considered) and other (ACS; panic/anxiety attack; ACS; bronchitis; hyperventilation) Lab Data Attestation: I reviewed the patient's lab results. Lab results narrative: test negative 06/06/25 23:02 06/06/25 23:02 Labs: Lab Results 06/06/25 06/07/25 06/07/25 Range/Units 23:02 01:31 01:55 WBC 6.4 (4.5-10.0) K/mm3 RBC 4.15 L (4.2-5.4) M/mm3 Hgb 12.1 (12.0-15.0) g/dL Hct 34.7 L (37.0-47.0) % MCV 83.6 (80-100) fl MCH 29.2 (26-34) pg MCHC 34.9 (32-36) g/dl RDW 13.5 (11.5-14.5) % Plt Count 250 (150-375) k/mm3 MPV 10.6 H (7.4-10.4) fl Immature Gran % (Auto) 0.2 (0-0.5) % Neut % (Auto) 51.6 (45.5-73.1) % Lymph % (Auto) 38.5 (18.3-44.2) % [place] % (Auto) 7.2 (2.6-8.5) % Eos % (Auto) 2.2 (0-4.4) % Baso % (Auto) 0.3 (0.2-1.2) % Lymph # (Auto) 2.46 (0.9-3.2) K/mm3 [place] # (Auto) 0.5 (0.1-0.6) K/mm3 Eos # (Auto) 0.1 (0-0.3) K/mm3 Baso # (Auto) 0.0 (0.0-0.1) K/mm3 Abs Immat Gran (auto) 0.01 (0.00-0.031) K/mm3 Absolute Neuts (auto) 3.3 (1.3-6.7) K/mm3 Absolute Nucleated RBC 0.000 (0.0-0.012) K/mm3 Nucleated RBC % 0.0 (0.0-0.2) % Sodium 139 (137-145) mmol/L Potassium 3.7 (3.4-5.0) mmol/L Chloride 104 (98-107) mmol/L Carbon Dioxide 20 L (22-30) mmol/L Anion Gap 15 H (4-12) mmol/L BUN 8 (7-17) mg/dL Creatinine 0.55 L (0.7-1.0) mg/dL Estim Creat Clear Calc 99 ml/min Estimated GFR > 60 (59 - ) Glucose 86 (65-110) mg/dL Calcium 9.2 (8.4-10.2) mg/dL Total Bilirubin 0.4 (0.2-1.3) mg/dL AST 36 (14-36) U/L ALT 18 (6-35) U/L Alkaline Phosphatase 42 (38-126) U/L Troponin I < 0.012 (0.000-0.034) ng/mL Total Protein 8.6 H (6.3-8.2) g/dL Albumin 4.9 (3.5-5.1) g/dL Urine Color Yellow (Yellow) Urine Appearance Cloudy H (Clear) Urine pH 7.0 (5.0-9.0) Ur Specific [place] 1.024 (1.001-1.035) Urine Protein 1+ H (Negative) mg/dL Urine Glucose (UA) Negative (Negative) mg/dL Urine Ketones Trace H (Negative) mg/dL Ur Blood (Man) 3+ H (Negative) Urine Nitrate Negative (Negative) Urine Bilirubin Negative (Negative) Urine Urobilinogen 1.0 (<2.0) mg/dL Add Ur Microanalysis Reviewed Leukocyte Esterase Rfl Trace H (Negative) MIRNA/UL Urine RBC 11-20 H (0-2) /hpf Urine WBC 0-5 (0-3) /hpf Ur Squamous Epith Cells Moderate (Few) /hpf Urine Bacteria Rare /hpf Urine Casts 0-2 Urine Mucus Present /lpf POC Urine HCG, Qual (Negative) Influenza A (RT-PCR) Negative (Negative) Influenza B (RT-PCR) Negative (Negative) RSV (RT-PCR) Negative (Negative) SARS-CoV-2 RNA (RT-PCR) Negative (Negative) 06/07/25 06/07/25 Range/Units 02:00 04:17 WBC (4.5-10.0) K/mm3 RBC (4.2-5.4) M/mm3 Hgb (12.0-15.0) g/dL Hct (37.0-47.0) % MCV (80-100) fl MCH (26-34) pg MCHC (32-36) g/dl RDW (11.5-14.5) % Plt Count (150-375) k/mm3 MPV (7.4-10.4) fl Immature Gran % (Auto) (0-0.5) % Neut % (Auto) (45.5-73.1) % Lymph % (Auto) (18.3-44.2) % [place] % (Auto) (2.6-8.5) % Eos % (Auto) (0-4.4) % Baso % (Auto) (0.2-1.2) % Lymph # (Auto) (0.9-3.2) K/mm3 [place] # (Auto) (0.1-0.6) K/mm3 Eos # (Auto) (0-0.3) K/mm3 Baso # (Auto) (0.0-0.1) K/mm3 Abs Immat Gran (auto) (0.00-0.031) K/mm3 Absolute Neuts (auto) (1.3-6.7) K/mm3 Absolute Nucleated RBC (0.0-0.012) K/mm3 Nucleated RBC % (0.0-0.2) % Sodium (137-145) mmol/L Potassium (3.4-5.0) mmol/L Chloride (98-107) mmol/L Carbon Dioxide (22-30) mmol/L Anion Gap (4-12) mmol/L BUN (7-17) mg/dL Creatinine (0.7-1.0) mg/dL Estim Creat Clear Calc ml/min Estimated GFR (59 - ) Glucose (65-110) mg/dL Calcium (8.4-10.2) mg/dL Total Bilirubin (0.2-1.3) mg/dL AST (14-36) U/L ALT (6-35) U/L Alkaline Phosphatase (38-126) U/L Troponin I Cancelled (0.000-0.034) ng/mL Total Protein (6.3-8.2) g/dL Albumin (3.5-5.1) g/dL Urine Color (Yellow) Urine Appearance (Clear) Urine pH (5.0-9.0) Ur Specific [place] (1.001-1.035) Urine Protein (Negative) mg/dL Urine Glucose (UA) (Negative) mg/dL Urine Ketones (Negative) mg/dL Ur Blood (Man) (Negative) Urine Nitrate (Negative) Urine Bilirubin (Negative) Urine Urobilinogen (<2.0) mg/dL Add Ur Microanalysis Leukocyte Esterase Rfl (Negative) MIRNA/UL Urine RBC (0-2) /hpf Urine WBC (0-3) /hpf Ur Squamous Epith Cells (Few) /hpf Urine Bacteria /hpf Urine Casts Urine Mucus /lpf POC Urine HCG, Qual Negative (Negative) Influenza A (RT-PCR) (Negative) Influenza B (RT-PCR) (Negative) RSV (RT-PCR) (Negative) SARS-CoV-2 RNA (RT-PCR) (Negative) Imaging Data Attestation: I personally reviewed and interpreted this imaging study as follows: My impression: Hyperinflated, thin body habitus. Otherwise no acute intrathoracic process on my independent interpretation chest x-ray ECG Data EKG #1: Attestation: I personally reviewed and interpreted this ECG as follows: ECG completion date: 06/06/25 ECG completion time: 22:51 Interpretation: Normal sinus rhythm at a rate of 90 beats per minute. ND interval 152. QRS 87. QT/QTC 350/428. Good R-wave progression across the precordial leads. T-wave inversion in V3 likely due to lead placement. Discharge Plan Discharge Clinical Impression: Carpopedal spasm, Shortness of breath, Encounter for medication refill Patient Disposition: Home Condition: Stable Instructions: Antibiotic Form, Carpopedal Spasm (ED), Shortness of Breath (ED) Additional Instructions: Because you do not have a primary care physician, the name of the doctors listed below for follow-up. A refill of your albuterol inhalers being provided. No clear etiology for your symptoms was identified through your workup which included EKG, chest x-ray, labs, etc. return to the emergency department any new or worsening symptoms. Patient Language: Slovenian Prescriptions: New albuterol sulfate [Ventolin HFA] 90 mcg/actuation HFA aerosol inhaler 1 inh inhalation QID PRN (Reason: shortness of breath or wheezing) Qty: 6.7 0RF No Action amoxicillin-pot clavulanate 875-125 mg tablet 1 tablet PO Q12H 5 Days Qty: 10 0RF Follow-up/Referrals: Hai Longoria MD [Physician, Family Practice] PHYSICIAN,VOLUNTEER PATIENT REPRESENTATIVE [Primary Care Provider, Internal Medicine] Stand Alone Forms: Work/School Release IP Time of Disposition: 05:02
[2025-06-07] MEDS: ONDANSETRON HCL ODT 4 MG TABLET PO (01:54)
[2025-06-07 02:02] LABS: BEDSIDEPREGUCG Negative (Negative)
[2025-06-07 02:07] LABS: Troponin I < 0.012 ng/mL (0.000-0.034)
[2025-06-07 02:25] LABS: Add Urine Microscopic? YES; Appearance Urine Cloudy (Clear); Glucose Urine UA Negative (Negative); Leukocyte Esterase Ur Trace LEU/UL (Negative); Need Manual Microscopic Reviewed; Nitrate Urine Negative (Negative); Non Pathogenic Casts 0-2; Specific Grav Ur 1.024 (1.001-1.035)
[2025-06-07 02:41] LABS: Influenza A QL RT-PCR Negative (Negative); Influenza B QL RT-PCR Negative (Negative); RSV RNA, RT-PCR Negative (Negative); SARS-CoV-2 RNA PCR Negative (Negative)
== END 2025-06-07 05:21 | disposition home or self-care (01) ==
PROVIDERS: Emergency Provider Student in an Organized Health Care Education/Training Program
DX: R29.0 Tetany (principal); R06.02 Shortness of breath; Z76.0 Encounter for issue of repeat prescription; Z20.822 Contact with and (suspected) exposure to COVID-19; J45.909 Unspecified asthma, uncomplicated
CPT/HCPCS: 36415; 71045; 80053; 81001; 81025; 84484; 85025; 87637; 93005; 99284; A9270